=== PATIENT | female | born 1935 | race Caucasian/White ===

== ENCOUNTER 2017-07-14 17:56 | Emergency (ER) | payer MEDICARE ==
[2017-07-14 19:02] LABS: Hematocrit 35 % (35-47); Mean Corpuscular HGB Conc 35 g/dl (31-36); Mean Corpuscular Hemoglobin 32 pg (27-31); Mean Corpuscular Volume 93 fL (80-97); Mean Platelet Volume 9 um3 (7.4-10.4); Red Blood Count 3.71 10^6/ul (4.0-5.4); Red Cell Distribution Width 13 % (10.5-15); White Blood Count 4.3 10^3/ul (3.5-10.8)
--- NOTE | 2017-07-14 19:05 | RAD ---
INDICATION: Weakness COMPARISON: None TECHNIQUE: An AP portable view obtained at 1850 hours is submitted. FINDINGS: Bones/Soft Tissues: There are no acute bony findings. Cardiomediastinal: The cardiomediastinal silhouette is normal. Lungs: There are no infiltrates. Pleura: There are no pleural effusions. Other: None IMPRESSION: NO ACTIVE DISEASE.
[2017-07-14 19:20] LABS: Albumin 3.9 g/dL (3.2-5.2); Calcium 9.3 mg/dL (8.6-10.3); EGFR African American 49.8 (>60); EGFR Non-African American 38.7 (>60); Globulin 2.8 g/dL (2-4); Total Bilirubin 0.3 mg/dL (0.2-1.0); Total Protein 6.7 g/dL (6.4-8.9)
[2017-07-14 19:21] LABS: Troponin I 0.01 ng/mL (<0.04)
[2017-07-14] MEDS ORDERED: NS 0.9% 1000 ML* 1,000 ML IV ONE (19:33)
[2017-07-14 19:39] LABS: TSH (Thyroid Stimulating Horm) 4.94 mcIU/mL (0.34-5.60)
--- NOTE | 2017-07-14 19:40 | ED ---
Familia Craft Tecjoon, scribed for Petey Gresham MD on 07/14/17 at 1826 . Palpitations / Dysrhythmia - HPI Summary HPI Summary: This patient is a 81 year old female with a history of dementia brought in by ambulance to [facility] accompanied by nonfarm animal caretaker with concerns for bradycardia since today at approximately 1700. The patient has been staying in bed all day, which is atypical for her. When asked why she is staying in bed, the patient complains of chronic back pain. The patient's vital signs have been measured at the facility throughout the day and she has reportedly been in the 30's BPM. Patient denies dizziness or lightheadedness. - History of Current Complaint Chief Complaint: EDDysrhythmPalp Time Seen by Provider: 07/14/17 18:15 Hx Obtained From: Patient, Family/Rn Registry - Assisted Living Facility Onset/Duration: Lasting Hours - 1700 today Character: Slow Aggravating: Nothing Alleviating: Nothing Associated Signs & Symptoms: Negative - dizziness, lightheadedness - Allergy/Home Medications Allergies/Adverse Reactions: Allergies Allergy/AdvReac Type Severity Reaction Status Date / Time Cephalosporins Allergy Unknown Verified 07/14/17 18:27 Reaction Details Iodine Allergy Unknown Verified 07/14/17 18:27 Reaction Details Shellfish Allergy Allergy Unknown Verified 07/14/17 18:27 Reaction Details Home Medications: Home Medications Acebutolol CAP* [Sectral CAP*] 200 mg PO BID 07/14/17 [History Confirmed ] Acetaminophen TAB* [Tylenol TAB*] 650 mg PO Q4HR PRN MDD 8 tablets 07/14/17 [ History Confirmed 07/14/17] Atorvastatin* [Lipitor*] 40 mg PO QPM 07/14/17 [History Confirmed 07/14/17] Cholecalciferol TAB* [Vitamin D TAB*] 1,000 unit PO DAILY 07/14/17 [History Confirmed 07/14/17] Memantine HCl-Donepezil HCl [Namzaric 28-10 mg] 1 cap PO BEDTIME 07/14/17 [ History Confirmed 07/14/17] Sertraline* [Zoloft*] 25 mg PO BEDTIME 07/14/17 [History Confirmed 07/14/17] Valsartan TAB* [Diovan TAB*] 320 mg PO DAILY 07/14/17 [History Confirmed ] PMH/Surg Hx/FS Hx/Imm Hx Previously Healthy: No Endocrine/Hematology History: Reports: Hx Thyroid Disease - hypo Sensory History: Denies: Hx Deafness Opthamlomology History: Denies: Hx Legally Blind Neurological History: Reports: Hx Dementia Infectious Disease History: No Infectious Disease History: Denies: Traveled Outside the [place] in Last 30 Days - Family History Known Family History: Positive: Other - Per patient, the patient denies relevant FHx - Social History Occupation: Unemployed Lives: [facility] Alcohol Use: None Hx Substance Use: No Substance Use Type: Reports: None Review of Systems Negative: Fever Positive: Other - bradycardia Positive: Other - chronic back pain Neurological: Other - NEGATIVE: lightheadedness, dizziness Negative: Weakness All Other Systems Reviewed And Are Negative: Yes Physical Exam Triage Information Reviewed: Yes Vital Signs On Initial Exam: Initial Vitals Temp Pulse Resp BP Pulse Ox 98.9 F 52 16 140/59 97 07/14/17 18:12 07/14/17 18:12 07/14/17 18:12 07/14/17 18:12 07/14/17 18:12 Vital Signs Reviewed: Yes Appearance: Positive: Well-Appearing, No Pain Distress Skin: Positive: Warm, Skin Color Reflects Adequate Perfusion Head/Face: Positive: Normal Head/Face Inspection ENT: Positive: Pharynx normal Respiratory/Lung Sounds: Positive: Clear to Auscultation, Breath Sounds Present Cardiovascular: Positive: Bradycardia. Negative: Murmur Abdomen Description: Positive: Nontender Musculoskeletal: Positive: Strength/ROM Intact Neurological: Positive: Sensory/Motor Intact, CN Intact II-III Diagnostics - Vital Signs Vital Signs Temp Pulse Resp BP Pulse Ox 07/14/17 18:12 98.9 F 52 16 140/59 97 - Laboratory Result Diagrams: 07/14/17 18:45 07/14/17 18:45 Lab Statement: Any lab studies that have been ordered have been reviewed, and results considered in the medical decision making process. - Radiology CXR Xray Interpretation: No Acute Changes - IMPRESSION: NO ACTIVE DISEASE ED physician has reviewed this radiology report. Radiology Interpretation Completed By: Radiologist - EKG 1804 Cardiac Rate: Bradycardia EKG Rhythm: Sinus Bradycardia - 51 BPM EKG Interpretation: Sinus Bradycardia (51 BPM), with Sinus Pause EKG Comparison: No Significant Change Course/Dx - Course Course Of Treatment: 81 yr old weak, tired and not getting out of bed today. She has sinus jennifer with sinus pauses. She will be admitted by the hospitalists for OBV. - Diagnoses Provider Diagnoses: Bradycardia, Sinus pause, Hypertension - Critical Care Time Critical Care Time: 30-74 min Discharge - Discharge Plan Condition: Good Disposition: [facility] Referrals: Felipa Shankar MD [Primary Care Provider] - The documentation as recorded by the Familia stein Tecjoon accurately reflects the service I personally performed and the decisions made by , Petey Gresham MD.
[2017-07-14] MEDS ORDERED: Acetaminophen TAB* 325 MG PO PRN (19:59)
[2017-07-14] MEDS ORDERED: Ondansetron INJ* 2 MG/ML VIAL IV PRN (19:59)
[2017-07-14 20:58] VITALS: BP 179/86
[2017-07-14] MEDS ORDERED: ACEBUTOLOL 200 MG PO SCH (21:00)
[2017-07-14] MEDS ORDERED: MEMANTINE HCL DONEPEZIL HCL PO SCH (21:00)
[2017-07-14] MEDS ORDERED: Sertraline* 25 MG TAB PO SCH (21:00)
[2017-07-14] MEDS ORDERED: Heparin VIAL(*) 5000 UNITS/ML VIAL (FIVE THOUSAND) SUBCUT SCH (22:00)
--- NOTE | 2017-07-15 00:59 | CONS ---
CC: Dr. Maki CONSULTATION REPORT: DATE OF CONSULT: 07/14/17 PRIMARY CARE PROVIDER: Dr. Maki. ATTENDING PHYSICIAN WHILE IN THE HOSPITAL: Dr. Shah (report being dictated by Jesus Yuen NP) REQUESTING PHYSICIAN FOR CONSULT: Dr. Gresham. REASON FOR MEDICAL CONSULT: Evaluation for admission. HISTORY OF PRESENTING ILLNESS: Ms. Yu is an 81-year-old female patient. She has a history of moderate dementia, history of hyperlipidemia, hypertension , depression, and a known history of bradycardia. The patient came into the ED today because according to [place] notes, it was noted that there is concern about bradycardia and the patient had been lying in her bed, which was not her norm. There was concern that the bradycardia could be symptomatic; however, when discussing with the patient today, she does not really recall why she is here. She denies having any chest pain, shortness of breath, or any abdominal pain. She does admit to having some pain in her left hip. She says she did not pass out. There were no reports of her feeling dizzy and no reports of her feeling lightheaded or like she was going to pass out. When she came in, it was noted that she was profoundly bradycardic. She was bradycardic down into the 40s at times. Her heart rate was 51, which she did appear to have a sinus bradycardia with non-conducted P waves. Because of this, there was concern, and we were asked to initially evaluate for admission. PAST MEDICAL HISTORY: Significant for: 1. Hyperlipidemia. 2. Hypertension. 3. Dementia. 4. Depression. 5. History of bradycardia. PAST SURGICAL HISTORY: She has had a loop recorder placed in [place] in October of this year by Dr Fitzpatrick. MEDICATIONS: Home meds include: 1. Tylenol 650 mg every 4 hours as needed. 2. Acebutolol 200 mg p.o. b.i.d. 3. Zoloft 25 mg daily. 4. Vitamin 1000 units p.o. daily. 5. Namenda/Aricept 1 capsule p.o. daily. 6. Lipitor 40 mg daily. 7. Valsartan 320 mg p.o. daily. ALLERGIES TO MEDICATIONS: Include CEPHALOSPORINS, IODINE, and SHELLFISH. FAMILY HISTORY: Unknown. SOCIAL HISTORY: She is a former smoker. She lives at [place] [facility]. She does not drink alcohol. Surrogate decision maker is her son, Abdelrahman. REVIEW OF SYSTEMS: Question the reliability of this because of the underlying dementia, but the patient says she feels fine. There is no chest pain. No shortness of breath. No abdominal pain. She denied having any nausea or vomiting. No dysuria, no frequency. No seizures. She denies having loss of consciousness. No pruritus. She denies having any skin ulcerations. Review of 14 systems completed, all others negative. PHYSICAL EXAM: Vital Signs: Blood pressure 164/80 with a pulse now of 60, respirations 18, O2 sat 98%, temperature 98.9. General: At this time, Ms. Yu is an 81-year-old female patient, she is sitting in the ER stretcher. She does not appear to be in any acute distress. HEENT: Head is atraumatic, normocephalic. Eyes: EOMs intact. Sclerae anicteric and not pale. Neck: Supple. Throat: Oral mucosa appears to be moist. No oropharyngeal erythema. Heart: Sounds S1, S2. Regular rate and rhythm. She is right around 60 now. No murmurs, rubs, or gallops. Lungs: Clear to auscultation bilaterally. No wheezes, rales, or rhonchi. Abdomen: Soft, flat, nontender. Bowel sounds are present. Extremities: Pulses were 2+ throughout. She is moving all 4 extremities with 5/5 strength. Neurologically, the patient is awake, alert. She is alert to herself but she is confused to place and time. Tongue is midline. Stores Clerk were equal. No facial drooping. No gross focal deficits. Skin is intact. DIAGNOSTIC STUDIES/LAB DATA: WBC 4.3, RBC of 3.71, hemoglobin 10.0, hematocrit 35, platelet count of 189. The INR was 0.9. The sodium was 136, potassium was 5, chloride of 106, bicarb 28, BUN 29, creatinine 1.32, glucose 84, lactate 0.6 , calcium 9.3, total bili 0.3, mag 2.0, AST 15, ALT 12, alk phos 96. Troponin 0. BNP 147. Albumin of 3.9. TSH of 4.94. The patient did have a chest x-ray obtained today, which revealed no active disease. She did have an EKG. The initial EKG appears to be sinus bradycardia with pauses. There does appear to be a sinus dysfunction on this. I do not think that she is in a third-degree block at this point. There are no ST elevations or T-wave inversions. She had a heart rate of 51. The repeat EKG now just shows a sinus bradycardia, rate of 55. Chest x-ray showed again no active disease. Old medical records were reviewed. ASSESSMENT AND PLAN: Ms. Yu is an 81-year-old female patient that we were asked to evaluate for admission for bradycardia. On further evaluation, it was noted that she had a loop recorder. I touched base with her son, Abdelrahman, who informed me that in October of this year, she had a loop recorder placed and she was having episodes of syncope. The patient and family did not want a pacemaker and the family did not want a pacemaker placed because of her underlying dementia. In fact, the son says that the loop recorder they do not use it anymore, he has the downloading device at home with him and they have not been using it. She went to [place] this summer because she was having a difficult time taking care of herself because of her progressing dementia and I did touch base with our on-call application support lead at this point and discussed the case with him myself and we felt that she could be safely discharged back home because we are not going to provide any pacemaker as the son and family are clear that they do not want pacemaker. We also discussed the purpose of the beta kerry that she is on the Sectral, other name is acebutolol. It does have some intrinsic sympathomimetic activity and which may actually increase her resting heart rate, so at this point, I would leave that beta kerry in place as it may be increasing her intrinsic heart rate. She was asymptomatic with the bradycardia here in the ED. I did discuss with the son that without undergoing a pacemaker, certainly that could cause her to if she were to become bradycardic in the 20s or even in the teens or went into a higher third- degree heart block. He is awake of the risks and the son also does agree that underlying the patient's bradycardia that she has this progressive dementia and he would not want to prolong her suffering with this disease with the pacemaker and he also feels that if placing a pacemaker is a risky operation in someone of 81 years old and frankly I do agree with him on this point and I respect his wishes and honor them and I did explain to him that we could admit her overnight to observe her and see if there any changes or lowering of the heart rates, and at that point, I did also explain the risk of that would be changing her environment could cause delirium, we could expose her to many hospital- acquired pathogens and he did not want to take that risk and we both felt that it would be safer for her to be discharged home. I did discuss that if she were to be bradycardic and have a higher degree block that the way we would treat that emergently would be a possibly CPR or possibly atropine or epinephrine and possibly external pacing and he would not want that if she is a DNR. So, at this point, I discussed the case with my attending, Dr. Shah , who is in agreement that it would be better for the patient's overall wellbeing to be discharged home as she was asymptomatic with a bradycardia and the family does not want aggressive measures. I discussed this with Dr. Gresham and the patient will be discharged home. We will continue her medications, I would not make any changes. I would recommend getting the records from Dr. Fitzpatrick office to see exactly what further workup was done and at this point, if she does become symptomatic, would return to the hospital if she has any syncope, chest pain, shortness of breath, or any lightheadedness. TIME SPENT: On the consult was 60 minutes; greater than half the time was spent [id number] with the patient, obtaining history and physical, the other half time was spent going over the plan of care with the patient and implementing plan of care. I did discuss the plan of care with my attending, Dr. Shah; he is in agreement. JESUS YUEN, KRISTY [id number]/[facility] #: [id number] MERCED
[2017-07-15] MEDS ORDERED: Valsartan TAB* 160 MG PO SCH (09:00)
[2017-07-15] MEDS ORDERED: Atorvastatin* 40 MG TAB PO SCH (18:00)
== END 2017-07-14 20:51 | disposition home or self-care (01) ==
LOC: ED 17:56
DX: R00.1 Bradycardia, unspecified (principal); Z87.891 Personal history of nicotine dependence; E78.5 Hyperlipidemia, unspecified; I10 Essential (primary) hypertension; F03.90 Unspecified dementia, unspecified severity, without behavioral disturbance, psychotic disturbance, mood disturbance, and anxiety; F32.9 Major depressive disorder, single episode, unspecified
CPT/HCPCS: 36415; 71010; 80053; 83605; 83735; 83880; 84443; 84484; 85025; 85610; 93005; 96360; 99284

== ENCOUNTER → 2017-12-07 | Emergency (ER) | payer MEDICARE ==
[~2017-12-07] MED LIST: NS 0.9% 1000 ML* 1,000 ML IV ONE; PROCHLORPERAZINE INJ 5 MG/ML 2 ML VIAL IV PRN
--- NOTE | 2017-12-07 09:54 | RAD ---
HISTORY: Palpitation COMPARISONS: July 14, 2017 VIEWS: 1: frontal portable view of the chest at 9:35 AM FINDINGS: LINES AND TUBES: None. CARDIOMEDIASTINAL SILHOUETTE: The cardiomediastinal silhouette is normal for portable technique. PLEURA: The costophrenic angles are sharp. No pleural abnormalities are noted. LUNG PARENCHYMA: The lungs are clear. ABDOMEN: The upper abdomen is clear. There is no subphrenic gas. BONES AND SOFT TISSUES: No bone or soft tissue abnormalities are noted. IMPRESSION: NO ACTIVE CARDIOPULMONARY DISEASE.
[2017-12-07 11:01] LABS: ABS Basophils 0 10^3/ul (0-0.2); ABS Eosinophils 0.1 10^3/ul (0-0.6); ABS Lymphocytes 0.8 10^3/ul (1.0-4.8); ABS Monocytes 0.4 10^3/ul (0-0.8); ABS Neutrophils 2.1 10^3/ul (1.5-7.7); ABS Nucleated RBC 0 10^3/ul; Eosinophil % 1.8 % (0-6); Hematocrit 32 % (35-47); Lymphocyte % 24.7 % (25-47); Mean Corpuscular HGB Conc 35 g/dl (31-36); Mean Corpuscular Hemoglobin 33 pg (27-31); Mean Corpuscular Volume 96 fL (80-97); Mean Platelet Volume 8.8 um3 (7.4-10.4); Nucleated Red Blood Cells % 0.1; Platelet Count 177 10^3/ul (150-450); Red Blood Count 3.32 10^6/ul (4.0-5.4); Red Cell Distribution Width 13 % (10.5-15); White Blood Count 3.4 10^3/ul (3.5-10.8)
[2017-12-07 11:17] LABS: EGFR Non-African American 57.9 (>60)
[2017-12-07 11:34] VITALS: BP 157/74
--- NOTE | 2017-12-07 17:10 | ED ---
Usman Craft Tenzin, scribed for Bobby Farias MD on 12/07/17 at 0948 . Dizziness - HPI Summary HPI Summary: Pt is an 82 years old female brought in by ambulance with complaints of dizziness and a mild headache that started at 08:00 this morning. She reports that when she gets up, her dizziness worsens. The nursing staff at [place], where she lives, noted her to be bradycardic in the 30s, so she was brought in to the ED. She denies nausea. She saw a doctor yesterday for sore throat and a rash complain. - History Of Current Complaint Chief Complaint: EDDizziness Stated Complaint: HEADACHE, DIZZY Time Seen by Provider: 12/07/17 09:22 Hx Obtained From: Patient, Family/Shoe Repairman Onset/Duration: Still Present Timing: Constant Severity Initially: Mild Severity Currently: Mild Character: Dizzy Aggravating Factor(s): Position Change - when she gets up. Alleviating Factor(s): Nothing Associated Signs And Symptoms: Positive: Other: - Dizziness and mild headache.. Negative: Nausea - Allergies/Home Medications Allergies/Adverse Reactions: Allergies Allergy/AdvReac Type Severity Reaction Status Date / Time MS Cephalosporins Allergy Unknown Verified 07/14/17 18:27 [Cephalosporins] Reaction Details MS Iodine [Iodine] Allergy Unknown Verified 07/14/17 18:27 Reaction Details MS Shellfish Allergy Allergy Unknown Verified 07/14/17 18:27 [Shellfish Allergy] Reaction Details Home Medications: Home Medications Acetaminophen TAB* [Tylenol TAB*] 650 mg PO Q4H PRN MDD 8 tablets 12/07/17 [ History Confirmed 12/07/17] Docusate CAP* [Colace Cap*] 100 mg PO DAILY 12/07/17 [History Confirmed 12/07/17 ] Fluticasone NASAL SPRAY 50MCG* [Flonase NASAL SPRAY 50MCG*] 1 spray BOTH NARES DAILY 12/07/17 [History Confirmed 12/07/17] Memantine XR CAP* [Namenda XR CAP*] 28 mg PO BEDTIME 12/07/17 [History Confirmed 12/07/17] Triamcinolone 0.025% CM(NF) [Kenalog Cream 0.025%*] 1 applic TOPICAL BID [History Confirmed 05/16/18] PMH/Surg Hx/FS Hx/Imm Hx Endocrine/Hematology History: Reports: Hx Thyroid Disease - hypo Sensory History: Denies: Hx Legally Blind, Hx Deafness Opthamlomology History: Denies: Hx Legally Blind Neurological History: Reports: Hx Dementia Infectious Disease History: No Infectious Disease History: Denies: Traveled Outside the [place] in Last 30 Days - Family History Known Family History: Positive: Other - Per patient, the patient denies relevant FHx - Social History Alcohol Use: None Hx Substance Use: No Substance Use Type: Reports: None Smoking Status (MU): Never Smoked Tobacco Review of Systems Negative: Nausea Positive: Rash Neurological: Other - dizziness Positive: Headache All Other Systems Reviewed And Are Negative: Yes Physical Exam - Summary Physical Exam Summary: Appearance: The patient is well-nourished in no acute distress and in no acute pain. Skin: The skin is warm and dry and skin color reflects adequate perfusion. HEENT: The head is normocephalic and atraumatic. The pupils are 1-2mm. The conjunctivae are clear and without drainage. Nares are patent and without drainage. Mouth reveals moist mucous membranes and the throat is without erythema and exudate. The external ears are intact. The ear canals are patent and without drainage. The tympanic membranes are intact. Neck: the neck is supple with full range of motion and non-tender. There are no carotid bruits. There is no neck vein distension. Respiratory: Chest is non-tender. Lungs are clear to auscultation and breath sounds are symmetrical and equal. Cardiovascular: Heart is bradycardia and irregular rhythm. There is no murmur or rub auscultated. There is no peripheral edema and pulses are symmetrical and equal. Abdomen: The abdomen is soft and non-tender. There are normal bowel sounds heard in all four quadrants and there is no organomegaly palpated. Musculoskeletal: There is no back tenderness noted. Extremities are non-tender with full range of motion. There is good capillary refill. There is no peripheral edema or calf tenderness elicited. Neurological: Patient is alert and oriented to person, place and time. She seems confused but appropriately answers to Y/N questions. The patient has symmetrical motor strength in all four extremities. Cranial nerves are grossly intact. Deep tendon reflexes are symmetrical and equal in all four extremities. Psychiatric: The patient has an appropriate affect and does not exhibit any anxiety or depression. Triage Information Reviewed: Yes Vital Signs On Initial Exam: Initial Vitals Temp Pulse Resp BP Pulse Ox 98.5 F 60 20 154/80 98 12/07/17 09:17 12/07/17 09:17 12/07/17 09:17 12/07/17 09:17 12/07/17 09:17 Vital Signs Reviewed: Yes Diagnostics - Vital Signs Vital Signs Temp Pulse Resp BP Pulse Ox 12/07/17 09:17 98.5 F 60 20 154/80 98 - Laboratory Lab Results: Lab Results 12/07/17 12/07/17 12/07/17 Range/Units 10:47 10:47 10:47 WBC 3.4 L (3.5-10.8) 10^3/ul RBC 3.32 L (4.0-5.4) 10^6/ul Hgb 11.0 L (12.0-16.0) g/dl Hct 32 L (35-47) % MCV 96 (80-97) fL MCH 33 H (27-31) pg MCHC 35 (31-36) g/dl RDW 13 (10.5-15) % Plt Count 177 (150-450) 10^3/ul MPV 8.8 (7.4-10.4) um3 Neut % (Auto) 61.7 (38-83) % Lymph % (Auto) 24.7 L (25-47) % [place] % (Auto) 10.6 H (0-7) % Eos % (Auto) 1.8 (0-6) % Baso % (Auto) 1.2 (0-2) % Absolute Neuts (auto) 2.1 (1.5-7.7) 10^3/ul Absolute Lymphs (auto) 0.8 L (1.0-4.8) 10^3/ul Absolute Monos (auto) 0.4 (0-0.8) 10^3/ul Absolute Eos (auto) 0.1 (0-0.6) 10^3/ul Absolute Basos (auto) 0 (0-0.2) 10^3/ul Absolute Nucleated RBC 0 10^3/ul Nucleated RBC % 0.1 Sodium 139 (139-145) mmol/L Potassium 4.2 (3.5-5.0) mmol/L Chloride 110 (101-111) mmol/L Carbon Dioxide 25 (22-32) mmol/L Anion Gap 4 (2-11) mmol/L BUN 22 (6-24) mg/dL Creatinine 0.93 (0.51-0.95) mg/dL Est GFR ( Amer) 74.4 (>60) Est GFR (Non-Af Amer) 57.9 (>60) BUN/Creatinine Ratio 23.7 H (8-20) Glucose 92 (70-100) mg/dL Lactic Acid 0.8 (0.5-2.0) mmol/L Calcium 8.9 (8.6-10.3) mg/dL Magnesium 2.0 (1.9-2.7) mg/dL Total Bilirubin 0.40 (0.2-1.0) mg/dL AST 14 (13-39) U/L ALT 11 (7-52) U/L Alkaline Phosphatase 98 (34-104) U/L Troponin I 0.03 (<0.04) ng/mL Total Protein 6.4 (6.4-8.9) g/dL Albumin 3.8 (3.2-5.2) g/dL Globulin 2.6 (2-4) g/dL Albumin/Globulin Ratio 1.5 (1-3) TSH 2.41 (0.34-5.60) mcIU/mL Result Diagrams: 12/07/17 10:47 12/07/17 10:47 Lab Statement: Any lab studies that have been ordered have been reviewed, and results considered in the medical decision making process. - Radiology CXR Xray Interpretation: No Acute Changes - Impression: No active cardiopulmonary disease. Dr. Farias reviewed the report. Radiology Interpretation Completed By: Radiologist - EKG 0916 Cardiac Rate: Bradycardia - at 34 bpm EKG Rhythm: Sinus Bradycardia EKG Interpretation: LAD Dizzy Course/Dx - Course Course Of Treatment: Ms. Yu was C/O some dizziness at the [facility] and the found her to be bradycardic. She was in a sinus bradycardia on presentation here and C/O nausea. We gave her fluids and compazine and her bradycardia resolved. It seems likely that this was vagal, however I am not sure what has led to it. Labs were fine here. - Diagnoses Provider Diagnoses: Vagal reaction, Viral syndrome Discharge - Sign-Out/Discharge Documenting (check all that apply): Discharge/Admit/Transfer - Discharge Plan Condition: Stable Disposition: HOME Patient Education Materials: Viral Syndrome (ED) Referrals: Felipa Shankar MD [Primary Care Provider] - 3 Days Additional Instructions: Follow up with your primary care physician in three days. Return to the emergency department for any new or worsening symptoms. - Billing Disposition and Condition Condition: STABLE Disposition: HOME The documentation as recorded by the Usman stein Tenzin accurately reflects the service I personally performed and the decisions made by me, Bobby Farias MD.
== END | disposition home or self-care (01) ==
LOC: ED 09:11
DX: R55 Syncope and collapse (principal); B34.9 Viral infection, unspecified; Z88.3 Allergy status to other anti-infective agents; Z88.8 Allergy status to other drugs, medicaments and biological substances
CPT/HCPCS: 36415; 71045; 80053; 83605; 83735; 84443; 84484; 85025; 93005; 96360; 99283

== ENCOUNTER 2018-10-09 13:07 | Inpatient (IN) | payer MEDICARE ==
[2018-10-09 13:48] LABS: ABS Basophils 0.1 10^3/ul (0-0.2); ABS Eosinophils 0.1 10^3/ul (0-0.6); ABS Lymphocytes 0.5 10^3/ul (1.0-4.8); ABS Monocytes 0.5 10^3/ul (0-0.8); ABS Neutrophils 4.6 10^3/ul (1.5-7.7); ABS Nucleated RBC 0 10^3/ul; Eosinophil % 1.7 %; Hematocrit 36 % (33-41); Hemoglobin 12.2 g/dL (12.0-16.0); Lymphocyte % 8.9 %; Mean Corpuscular HGB Conc 34 g/dL (31-36); Mean Corpuscular Hemoglobin 32 pg (27-31); Mean Corpuscular Volume 94 fL (80-97); Mean Platelet Volume 9.1 fL (7.4-10.4); Nucleated Red Blood Cells % 0; Platelet Count 212 10^3/uL (150-450); Red Blood Count 3.79 10^6 /uL (3.70-4.87); Red Cell Distribution Width 13 % (10.5-15); White Blood Count 5.7 10^3/uL (3.5-10.8)
[2018-10-09 13:56] LABS: INR 0.93 (0.77-1.02)
[2018-10-09] MEDS ORDERED: Albuterol/Ipratropium NEB.SOL* Albuterol 2.5 MG/Ipratropium 0.5 MG 3 ML INH ONE (13:58)
[2018-10-09 14:06] LABS: Influenza A Molecular NEGATIVE (Negative); Influenza B Molecular NEGATIVE (Negative)
[2018-10-09 14:08] LABS: Albumin 4.5 g/dL (3.2-5.2); Albumin/Globulin Ratio 1.6 (1-3); BUN/Creatinine Ratio 19.8 (8-20); C Reactive Protein 10.57 mg/L (<8.01); Calcium 9.2 mg/dL (8.6-10.3); EGFR African American 67.3 (>60); EGFR Non-African American 55.6 (>60); Globulin 2.9 g/dL (2-4); Potassium 4.2 mmol/L (3.5-5.0); Total Bilirubin 0.6 mg/dL (0.2-1.0); Total Protein 7.4 g/dL (6.4-8.9)
[2018-10-09 14:11] LABS: Troponin I 0.04 ng/mL (<0.04)
[2018-10-09] MEDS ORDERED: Furosemide IV* 10 MG/ML 2 ML VIAL (20 MG) IV ONE (14:43)
--- NOTE | 2018-10-09 14:52 | ED ---
Respiratory - HPI Summary HPI Summary: patient is an 83-year-old female presents to the ED by EMS from the [facility]. Patient is DNR. Per EMS, patient has been having nausea, vomiting, diarrhea with a cough 24 hours. She is also noted to have stridor at rest. Staff at the [facility] state this is her baseline when she becomes anxious. She does have a history of severe dementia, hypertension and hypercholesterolemia. She has a history of COPD. No known history of CHF. Patient is a poor historian, however is able to state she has been having a cough 24 hours. She denies any sweats or chills. Unknown fevers. - History of Current Complaint Chief Complaint: EDShortnessOfBreath Stated Complaint: SOB, VOMITING PER CORRECTION Time Seen by Provider: 10/09/18 13:10 Hx Obtained From: Patient Onset/Duration: Sudden Onset Timing: Constant Initial Severity: Mild Current Severity: Mild Pain Intensity: 0 Character: Wheezing, Cough (Productive) Sputum Amount: Scant Sputum Color: White Aggravating Factor(s): Nothing Alleviating Factor(s): Nothing Associated Signs and Symptoms: Negative - Risk Factors Status Asthmaticus Risk Factors: Negative Pulmonary Embolism Risk Factors: Negative Cardiac Risk Factors: Negative Pseudomonas Risk Factors: Negative - Allergy/Home Medications Allergies/Adverse Reactions: Allergies Allergy/AdvReac Type Severity Reaction Status Date / Time Cephalosporins Allergy Unknown Verified 10/09/18 13:58 Reaction Details iodine Allergy Unknown Verified 10/09/18 13:58 Reaction Details shellfish derived Allergy Unknown Verified 10/09/18 13:58 Reaction Details Home Medications: Home Medications Guaifenesin/Dextromethorphan [Robitussin Cough-Chest Dm Liq] 10 ml PO Q6HR PRN 10/09/18 [History Confirmed 10/09/18] Methyl Salicylate/Menthol [Bengay Greaseless] 1 cre TOPICAL Q4HR PRN 10/09/18 [ History Confirmed 10/09/18] Petrolatum,White [Aquaphor Advanced Therapy] 1 oin TOPICAL BID PRN 10/09/18 [ History Confirmed 10/09/18] Ranitidine TAB (NF) [Zantac TAB (NF)] 150 mg PO BEDTIME 10/09/18 [History Confirmed 10/09/18] amLODIPine TAB* [Norvasc 5 mg TAB*] 5 mg PO DAILY 10/09/18 [History Confirmed ] PMH/Surg Hx/FS Hx/Imm Hx Previously Healthy: Yes - memory loss Endocrine/Hematology History: Reports: Hx Thyroid Disease - hypo Sensory History: Denies: Hx Legally Blind, Hx Deafness Opthamlomology History: Denies: Hx Legally Blind Neurological History: Reports: Hx Dementia Infectious Disease History: Unable to Obtain/Confirm Infectious Disease History: Denies: Traveled Outside the [place] in Last 30 Days - Family History Known Family History: Positive: Other - Per patient, the patient denies relevant FHx - Social History Alcohol Use: None Hx Substance Use: No Substance Use Type: Reports: None Hx Tobacco Use: No Smoking Status (MU): Never Smoked Tobacco Review of Systems Constitutional: Negative Negative: Fever, Chills, Fatigue, Skin Diaphoresis Negative: Epistaxis, Dental Pain Negative: Palpitations, Chest Pain Positive: Shortness Of Breath, Cough Positive: Vomiting, Diarrhea, Nausea. Negative: Abdominal Pain Genitourinary: Negative Positive: no symptoms reported, see HPI Musculoskeletal: Negative Neurological: Negative All Other Systems Reviewed And Are Negative: Yes Physical Exam Triage Information Reviewed: Yes Vital Signs On Initial Exam: Initial Vitals Temp Pulse Resp BP Pulse Ox 98.4 F 75 26 152/82 98 10/09/18 13:10 10/09/18 13:10 10/09/18 13:10 10/09/18 13:10 10/09/18 13:10 Vital Signs Reviewed: Yes Appearance: Positive: Well-Appearing, Well-Nourished Skin: Positive: Warm, Skin Color Reflects Adequate Perfusion Head/Face: Positive: Normal Head/Face Inspection Eyes: Positive: EOMI, AZEEM Neck: Positive: Supple, Nontender, No Lymphadenopathy Respiratory/Lung Sounds: Positive: Rales, Rhonchi, Wheezes Cardiovascular: Positive: Pulses are Symmetrical in both Upper and Lower Extremities, Leg Edema Left - +2, Leg Edema Right - +2 Diagnostics - Vital Signs Vital Signs Temp Pulse Resp BP Pulse Ox 10/09/18 14:26 77 17 98 10/09/18 13:10 98.4 F 75 26 152/82 98 - Laboratory Lab Results: Lab Results 10/09/18 10/09/18 10/09/18 Range/Units 13:34 13:34 13:34 WBC 5.7 (3.5-10.8) 10^3/uL RBC 3.79 (3.70-4.87) 10^6 /uL Hgb 12.2 (12.0-16.0) g/dL Hct 36 (33-41) % MCV 94 (80-97) fL MCH 32 H (27-31) pg MCHC 34 (31-36) g/dL RDW 13 (10.5-15) % Plt Count 212 (150-450) 10^3/uL MPV 9.1 (7.4-10.4) fL Neut % (Auto) 80.2 % Lymph % (Auto) 8.9 % Hickory % (Auto) 8.3 % Eos % (Auto) 1.7 % Baso % (Auto) 0.9 % Absolute Neuts (auto) 4.6 (1.5-7.7) 10^3/ul Absolute Lymphs (auto) 0.5 L (1.0-4.8) 10^3/ul Absolute Monos (auto) 0.5 (0-0.8) 10^3/ul Absolute Eos (auto) 0.1 (0-0.6) 10^3/ul Absolute Basos (auto) 0.1 (0-0.2) 10^3/ul Absolute Nucleated RBC 0 10^3/ul Nucleated RBC % 0 INR (Anticoag Therapy) 0.93 (0.77-1.02) Sodium 135 (135-145) mmol/L Potassium 4.2 (3.5-5.0) mmol/L Chloride 103 (101-111) mmol/L Carbon Dioxide 25 (22-32) mmol/L Anion Gap 7 (2-11) mmol/L BUN 19 (6-24) mg/dL Creatinine 0.96 H (0.51-0.95) mg/dL Est GFR ( Amer) 67.3 (>60) Est GFR (Non-Af Amer) 55.6 (>60) BUN/Creatinine Ratio 19.8 (8-20) Glucose 124 H (70-100) mg/dL Lactic Acid (0.5-2.0) mmol/L Calcium 9.2 (8.6-10.3) mg/dL Total Bilirubin 0.60 (0.2-1.0) mg/dL AST 18 (13-39) U/L ALT 12 (7-52) U/L Alkaline Phosphatase 123 H (34-104) U/L Troponin I 0.04 H* (<0.04) ng/mL C-Reactive Protein 10.57 H (<8.01) mg/L B-Natriuretic Peptide (<=100) pg/mL Total Protein 7.4 (6.4-8.9) g/dL Albumin 4.5 (3.2-5.2) g/dL Globulin 2.9 (2-4) g/dL Albumin/Globulin Ratio 1.6 (1-3) Influenza A (Rapid) (Negative) Influenza B (Rapid) (Negative) 10/09/18 10/09/18 10/09/18 Range/Units 13:34 13:34 13:54 WBC (3.5-10.8) 10^3/uL RBC (3.70-4.87) 10^6 /uL Hgb (12.0-16.0) g/dL Hct (33-41) % MCV (80-97) fL MCH (27-31) pg MCHC (31-36) g/dL RDW (10.5-15) % Plt Count (150-450) 10^3/uL MPV (7.4-10.4) fL Neut % (Auto) % Lymph % (Auto) % Hickory % (Auto) % Eos % (Auto) % Baso % (Auto) % Absolute Neuts (auto) (1.5-7.7) 10^3/ul Absolute Lymphs (auto) (1.0-4.8) 10^3/ul Absolute Monos (auto) (0-0.8) 10^3/ul Absolute Eos (auto) (0-0.6) 10^3/ul Absolute Basos (auto) (0-0.2) 10^3/ul Absolute Nucleated RBC 10^3/ul Nucleated RBC % INR (Anticoag Therapy) (0.77-1.02) Sodium (135-145) mmol/L Potassium (3.5-5.0) mmol/L Chloride (101-111) mmol/L Carbon Dioxide (22-32) mmol/L Anion Gap (2-11) mmol/L BUN (6-24) mg/dL Creatinine (0.51-0.95) mg/dL Est GFR ( Amer) (>60) Est GFR (Non-Af Amer) (>60) BUN/Creatinine Ratio (8-20) Glucose (70-100) mg/dL Lactic Acid 0.9 (0.5-2.0) mmol/L Calcium (8.6-10.3) mg/dL Total Bilirubin (0.2-1.0) mg/dL AST (13-39) U/L ALT (7-52) U/L Alkaline Phosphatase (34-104) U/L Troponin I (<0.04) ng/mL C-Reactive Protein (<8.01) mg/L B-Natriuretic Peptide 189 H (<=100) pg/mL Total Protein (6.4-8.9) g/dL Albumin (3.2-5.2) g/dL Globulin (2-4) g/dL Albumin/Globulin Ratio (1-3) Influenza A (Rapid) Negative (Negative) Influenza B (Rapid) Negative (Negative) Result Diagrams: 10/09/18 13:34 10/09/18 13:34 Lab Statement: Any lab studies that have been ordered have been reviewed, and results considered in the medical decision making process. Disposition - Course Course Of Treatment: During this patient's course of treatment, she is evaluated for nausea, vomiting, diarrhea and cough 24 hours. She had 2 episodes of emesis. On arrival into the ED she is noted to have stridor. EMS and staff at the [facility] state this is baseline for her when she becomes anxious. Lungs sound rhonchorous bilaterally with mild wheezing. Legs with pitting +2 edema bilaterally. Afebrile, VS stable. After arrival, no stridor is noted. Chest xray shows mild cardiomegaly and COPD. Duo-Neb breathing tx with little affect of rhonchorous sounds. She remains on 2L NC and sat is 96%. She is taken off O2 to ambulate as she does not have at home and immediately drops to 83%. She is placed back on O2 and is satting at 94%. She will be admitted to [facility] for hypoxia and O2 demand. Elevated dimer - will obtain CTA. Patient is admitted at 4:40p while awaiting CTA results. - Differential Dx - Cardiopulmonary Differential Diagnoses - Cardiopulmonary: Other - Nausea, vomiting, diarrhea, hypoxia, CHF - Diagnoses Provider Diagnoses: Hypoxia Discharge - Sign-Out/Discharge Documenting (check all that apply): Patient Departure Patient Received Moderate/Deep Sedation with Procedure: No - Discharge Plan Condition: Fair Disposition: ADMITTED TO [facility] Referrals: Felipa Shankar MD [Primary Care Provider] - - Billing Disposition and Condition Condition: FAIR Disposition: Admitted to [facility]
[2018-10-09 16:29] LABS: Urine Appearance Cloudy; Urine Bacteria 1+ (Absent); Urine Bilirubin Negative (Negative); Urine Blood Negative (Negative); Urine Glucose Negative (Negative); Urine Ketones Negative (Negative); Urine Nitrite Negative (Negative); Urine Protein Negative (Negative); Urine Red Blood Cell Trace(0-2/hpf) (Absent); Urine Specific Gravity 1.009 (1.010-1.030); Urine Squamous Epithelial Cell Present (Absent); Urine Urobilinogen Negative (Negative); Urine White Blood Cell 1+(6-10/hpf) (Absent)
[2018-10-09 16:33] LABS: Urine Color Colorless
[2018-10-09] MEDS ORDERED: Al Hydrox/Mg Hydrox/Simet LIQ* 30 ML UDC PO PRN (17:34)
[2018-10-09] MEDS ORDERED: Magnesium Hydroxide LIQ* 30 ML UDC PO PRN (17:34)
[2018-10-09] MEDS ORDERED: Acetaminophen TAB* 325 MG PO PRN (17:41)
[2018-10-09 18:48] LABS: Troponin I 0.04 ng/mL (<0.04)
[2018-10-09] MEDS ORDERED: Ondansetron INJ* 2 MG/ML VIAL IV PRN (18:49)
[2018-10-09] MEDS ORDERED: LORazepam TAB(*) 0.5 MG PO ONE (20:05)
--- NOTE | 2018-10-09 20:19 | HP ---
CC: Dr. Felipa Shankar * HISTORY AND PHYSICAL: DATE OF ADMISSION: 10/09/18 PRIMARY CARE PROVIDER: Dr. Felipa Shankar. ATTENDING PHYSICIAN: Dr. Carina Queen * (dictated by MODESTO Kwok). CHIEF COMPLAINT: Vomiting, diarrhea, difficulty breathing. HISTORY OF PRESENT ILLNESS: Joanna Yu is an 83-year-old female with past medical history significant for dementia, hypertension, hypercholesterolemia, COPD, bradycardia, who presents to the emergency room from [facility] with 24 hours of nausea, vomiting, diarrhea, and a cough. She has had multiple sick contacts at [facility]. Her son reports that there has been "a GI bug going around [facility]," which he was told by the nursing staff there. The patient began having vomiting and diarrhea yesterday, and today she was noticed to be breathing with stridor. [facility] staff notices that she does frequently have stridorous breathing when she is anxious. The patient is a poor historian, though she is able to describe a cough that she has had. She is without other complaints at the time of exam. The majority of her history is gathered from previous EMR and her son who is at bedside. At the time of visit, the patient denied abdominal pain and shortness of breath. ED COURSE: When she arrived to the emergency department, she had a temperature of 98.4, pulse rate of 75 beats per minute, respiration rate of 26, O2 saturation of 98% on 2 L by nasal cannula, and a blood pressure of 152/82. She was noted to be stridorous and was given DuoNeb with little improvement. The patient does not require oxygen at home. She was tested with ambulating O2 saturation and her O2 saturation went as low as 83% after ambulating approximately 10 feet per ED staff. In the emergency department, her D- dimer was found to be 392 and troponin of 0.04. Therefore, the hospitalists were asked to evaluate the patient for admission. PAST MEDICAL HISTORY: 1. Dementia. 2. Hypothyroidism. 3. Vitamin D deficiency. 4. Hypertension. 5. Hypercholesterolemia. 6. COPD. 7. Bradycardia. 8. Depression 9. GERD PAST SURGICAL HISTORY: The patient had a loop recorder placed in 2017. FAMILY HISTORY: The patient's mother in her 70s, she had dementia at time of . The patient's father in his 60s, medical history is unknown. Son does not believe that either of the patient's parents nor sister had history of CHF, hypertension, CAD, or CVA. SOCIAL HISTORY: The patient is and lives in [facility]. She does not have children of her own, though her stepson, Omari, is her power of state attorney and is involved in her care. His phone number is . The patient is a former smoker. She does not drink alcohol or use illicit drugs. MEDICATIONS: 1. Tylenol 650 mg every 4 hours as needed for back pain. 2. Acebutolol 200 mg p.o. b.i.d. 3. Zoloft 25 mg daily. 4. Vitamin D 1000 units p.o. daily. 5. Amlodipine 5 mg p.o. daily. 6. Ranitidine 150 mg p.o. at bedtime. 7. Namenda XR 28 mg p.o. q.h.s. 8. Lipitor 40 mg p.o. daily. 9. Valsartan 320 mg p.o. daily. ALLERGIES: The patient has allergies to SHELLFISH, IODINE, CEPHALOSPORINS. The reactions are unknown to her son and are not listed on her medical chart from [facility]. REVIEW OF SYSTEMS: An 11-point review of systems was completed and all pertinent positives and negatives are in the HPI. All other systems are negative. PHYSICAL EXAMINATION GENERAL: Elderly female is sitting upright in hospital stretcher, appearing in no acute distress, stepson at bedside. HEENT: Head: Atraumatic and normocephalic. Eyes: PERRL and sclerae anicteric. ENT: Mucous membranes are moist. NECK: Supple with normal range of motion. RESPIRATORY: End-expiratory wheezing throughout posteriorly and anteriorly. Respirations without stridor. CHEST: Regular rate and rhythm without murmurs, rubs, or gallops. ABDOMEN: Normoactive bowel sounds x4 quadrants; abdomen is soft, nontender, and nondistended. EXTREMITIES: No clubbing or cyanosis. There is pretibial edema in bilateral lower extremities. No calf tenderness bilaterally. NEURO: The patient is only oriented to self, though she is quite pleasant and cooperative. +5/5 strength in all extremities. No tremor. DIAGNOSTIC STUDIES/LAB DATA: Electrocardiogram on 10/09/18: Normal axis with sinus rhythm of 74 beats per minute, QTc 471. No ischemic changes. Chest x-ray on 10/09/18, impression: "Mild cardiomegaly. COPD." White blood cell count 5.7, hemoglobin 12.2, hematocrit 36, platelet count 212. INR 0.93, D-dimer 392. Sodium 135, potassium 4.2, chloride 103, carbon dioxide 25, BUN 19, creatinine 0.96, glucose 124, lactic acid 0.9. AST 18, ALT 12, alk phos 123. Troponin 0.04, BNP 189. Influenza A negative, influenza B negative. ASSESSMENT AND PLAN: The patient is an 83-year-old female with significant past medical history of chronic obstructive pulmonary disease, dementia, hypertension, hyperlipidemia, who presents to the emergency department from [facility] with stridor, nausea, vomiting, and diarrhea. The patient will be admitted to observation for: 1. Acute hypoxia. Included in the differential is acute exacerbation of congestive heart failure, chronic obstructive pulmonary disease exacerbation, pneumonia, and pulmonary embolism. The patient was found to be stridorous when she arrived to the emergency department and was given 2 L of oxygen via nasal cannula. The patient does not normally require oxygen at baseline. Her ambulating O2 sat dropped to 83% in the emergency department. DuoNeb in the ED did not provide much relief. At the time of exam by hospitalist medicine, the patient was no longer stridorous, but did have end-expiratory wheezing on auscultation. The patient has a D-dimer of 392, which is negative when age- adjusted. Therefore, CTA of the chest for further testing is not necessary at this time. The patient does not have a history of congestive heart failure. She has followed with a decker operator in the past for bradycardia and has never been diagnosed with congestive heart failure to the knowledge of the patient's POA. Today, she has bilateral peripheral edema in her lower extremities and troponin of 0.04. I suspect that this troponin is due to demand ischemia. Regardless troponins will still be trended to negative. Echocardiogram is ordered as well. Lasix 20 mg IV was given once in the emergency department. We will continue to monitor respiratory status. Her EKG was without signs of ischemic change. CXR demonstrated mild cardiomegaly and COPD. 2. Nausea/vomiting/diarrhea. The patient has had multiple sick contacts at her nursing facility at [facility]. It is likely that this is an infectious gastroenteritis. There is no concern for bowel obstruction at this time as the patient has benign abdominal exam. Despite multile episodes of vomiting and diarrhea, the patient has no signs of hypovolemia. She has moist mucous membranes and her [id number] ratio is within normal limits. We will continue to monitor these labs. PRN zofran ordered. 3. Hyperlipidemia. Continue the patient's home Lipitor. LDL ordered. 4. Hypertension. Continue home amlodipine and valsartan. Continue to monitor blood pressure. 5. Dementia. Continue home memantine. 6. Depression. Continue the home Zoloft. 7. Bradycardia. Continue home acebutolol. 8. Hypothyroidism. The patient does not take Synthroid at home. We will check TSH. 9. Chronic obstructive pulmonary disease. The patient does not take home medicine. We will continue to monitor. 10. Vitamin D deficiency. We will continue the patient's home cholecalciferol. 11. Gastroesophageal reflux disease. Continue the patient's home ranitidine. 12. Fluids, electrolytes, nutrition: Initiating GI easy diet as the patient presents with vomiting. The patient does not need IV fluids at this time as volume status appears within normal limits. 13. Code status: The patient is DNR/DNI. MOLST has been updated. 14. DVT prophylaxis: The patient has a high risk for deep venous thrombosis. The 5000 units of heparin subcu q.8 hours initiated. TIME SPENT: Approximately 50 minutes was spent on this admission, approximately half of this spent at bedside. This case was reviewed by my attending, Dr. Carina Queen, and she agrees with this assessment and plan. MODESTO KWOK [id number]/[facility] #: [id number]/CPS #: [id number] [facility]
--- NOTE | 2018-10-09 20:28 | HP ---
HISTORY AND PHYSICAL: ADDENDUM: PAST MEDICAL HISTORY: The patient has past medical history of depression, GERD. ASSESSMENT AND PLAN: The patient is an 83-year-old female with significant past medical history of chronic obstructive pulmonary disease, dementia, hypertension, hyperlipidemia, who presents to the emergency department from [email or web address] with stridor, nausea, vomiting, and diarrhea. The patient will be admitted to observation for: 1. Acute hypoxia including the differential is acute exacerbation of congestive heart failure, chronic obstructive pulmonary disease exacerbation, pneumonia, and pulmonary embolism. The patient was found to be stridorous when she arrived to the emergency department and was given 2 L of oxygen via nasal cannula. The patient does not normally require oxygen at baseline. Her ambulating O2 sat dropped to 83% in the emergency department. DuoNeb in the ED did not provide much relief. At the time of exam, the patient was no longer stridorous, but did have end-expiratory wheezing. The patient has a D-dimer of 392, so when age-adjusted, this is a negative D-dimer. Therefore, CTA of the chest for further testing is not necessary at this time. The patient does not have a history of congestive heart failure, though she has followed with a sueding and buffing machine operator in the past for bradycardia and has never been diagnosed with congestive heart failure to the knowledge of the patient's POA. Today, she has bilateral peripheral edema in her lower extremities and troponin of 0.04. I suspect that this troponin is due to demand ischemia, so they will still be trended to negative. Echocardiogram is ordered as well. Lasix 20 mg IV was given once in the emergency department. We will continue to monitor respiratory status. Her EKG was without signs of ischemic change. 2. Nausea/vomiting/diarrhea. The patient has had multiple sick contacts at her nursing facility at [place]. It is likely that this is an infectious gastroenteritis. Despite reports of vomiting and diarrhea, the patient has no signs of hypovolemia. She has moist mucous membranes and her [id number] ratio is within normal limits. We will continue to monitor these labs. There is no concern for bowel obstruction at this time as the patient has benign abdominal exam. 3. Hyperlipidemia. Continue the patient's home Lipitor. LDL ordered. 4. Hypertension. Continue home amlodipine and valsartan. Continue to monitor blood pressure. 5. Dementia. Continue home memantine. 6. Depression. Continue the patient's home Zoloft. 7. Bradycardia. Continue home acebutolol. 8. Hypothyroidism. The patient does not take Synthroid at home. We will check TSH. 9. Chronic obstructive pulmonary disease. The patient does not take home medicine. We will continue to monitor. 10. Vitamin D deficiency. We will continue the patient's home cholecalciferol. 11. Gastroesophageal reflux disease. Continue the patient's home ranitidine. 12. Fluids, electrolytes, nutrition: Initiating GI easy diet as the patient presents with vomiting. The patient does not need IV fluids at this time as volume status appears within normal limits. 13. Code status: The patient is DNR. MOLST has been updated. 14. DVT prophylaxis: The patient has a high risk for deep venous thrombosis. The 5000 units of heparin subcu q.8 hours initiated. TIME SPENT: Approximately 50 minutes was spent on this admission, approximately half of this spent at bedside. This case was reviewed by my attending, Dr. Carina Queen, and she agrees with this assessment and plan. MODESTO VALDEZ [id number]/[facility] #: [id number] [facility]
[2018-10-09 20:38] LABS: Troponin I 0.04 ng/mL (<0.04)
[2018-10-09] MEDS: Albuterol/Ipratropium NEB.SOL* Albuterol 2.5 MG/Ipratropium 0.5 MG 3 ML INH PRN (21:03)
[2018-10-09] MEDS: Sertraline* 25 MG TAB PO SCH (21:51)
[2018-10-09] MEDS: Famotidine TAB* 20 MG PO SCH (21:51)
[2018-10-09] MEDS: Memantine XR CAP* 28 MG CAP.XR PO SCH (21:51)
[2018-10-09] MEDS: ACEBUTOLOL 200 MG PO SCH (21:52)
[2018-10-09] MEDS: Heparin VIAL(*) 5000 UNITS/ML VIAL (FIVE THOUSAND) SUBCUT SCH (21:52)
[2018-10-09] MEDS: Atorvastatin* 40 MG TAB PO SCH (21:52)
[2018-10-10] MEDS: Heparin VIAL(*) 5000 UNITS/ML VIAL (FIVE THOUSAND) SUBCUT SCH (05:18)
[2018-10-10 07:40] LABS: ABS Basophils 0 10^3/ul (0-0.2); ABS Eosinophils 0.1 10^3/ul (0-0.6); ABS Lymphocytes 0.8 10^3/ul (1.0-4.8); ABS Monocytes 0.5 10^3/ul (0-0.8); ABS Neutrophils 3.4 10^3/ul (1.5-7.7); ABS Nucleated RBC 0 10^3/ul; Eosinophil % 1.5 %; Hematocrit 33 % (33-41); Hemoglobin 11.1 g/dL (12.0-16.0); Lymphocyte % 16.3 %; Mean Corpuscular HGB Conc 34 g/dL (31-36); Mean Corpuscular Hemoglobin 32 pg (27-31); Mean Corpuscular Volume 94 fL (80-97); Mean Platelet Volume 9.3 fL (7.4-10.4); Nucleated Red Blood Cells % 0.1; Platelet Count 185 10^3/uL (150-450); Red Blood Count 3.51 10^6 /uL (3.70-4.87); Red Cell Distribution Width 13 % (10.5-15); White Blood Count 4.8 10^3/uL (3.5-10.8)
[2018-10-10 08:07] LABS: Albumin 4.1 g/dL (3.2-5.2); Albumin/Globulin Ratio 1.6 (1-3); BUN/Creatinine Ratio 20.4 (8-20); Calcium 8.8 mg/dL (8.6-10.3); EGFR African American 69.8 (>60); EGFR Non-African American 57.7 (>60); Globulin 2.6 g/dL (2-4); HDL Cholesterol 29.2 mg/dL; Potassium 3.9 mmol/L (3.5-5.0); Total Bilirubin 0.5 mg/dL (0.2-1.0); Total Protein 6.7 g/dL (6.4-8.9)
[2018-10-10] MEDS: Nystatin OINT* 15 GM TOPICAL SCH ×2 (08:59→20:50)
[2018-10-10] MEDS: amLODIPine TAB* 5 MG PO SCH (08:59)
[2018-10-10] MEDS: Cholecalciferol TAB* 1000 UNITS PO SCH (08:59)
[2018-10-10] MEDS: Valsartan TAB* 160 MG PO SCH (08:59)
[2018-10-10] MEDS: Fluticasone NASAL SPRAY 50MCG* 16 gm SPRAY BTL BOTH NARES SCH (08:59)
[2018-10-10] MEDS: ACEBUTOLOL 200 MG PO SCH ×2 (08:59→20:48)
[2018-10-10] MEDS: Albuterol/Ipratropium NEB.SOL* Albuterol 2.5 MG/Ipratropium 0.5 MG 3 ML INH PRN (09:23)
[2018-10-10] MEDS ORDERED: Furosemide IV* 10 MG/ML 2 ML VIAL (20 MG) IV ONE (10:18)
[2018-10-10] MEDS: predniSONE TAB* 20 MG PO SCH (10:50)
--- NOTE | 2018-10-10 12:41 | PN ---
Subjective Interval History: Admitted last night. Given pt's significant smoking history, wheezing on exam, and hyperinflation on CXR, I suspect this is a COPD exacerbation (first time - not previously diagnosed). I started steroids today. Also dosing furosemide IV x 1 given significant LE swelling. CXR was not concerning for edema, so unlikely that HF is cause of current symptoms. TTE still pending. Objective Active Medications: Acebutolol HCl (Sectral Cap*) 200 mg PO BID [facility] Last Admin: 10/10/18 08:59 Dose: 200 mg Acetaminophen (Tylenol Tab*) 650 mg PO Q4H PRN PRN Reason: PAIN Al Hydrox/Mg Hydrox/Simethicone (Maalox Plus*) 30 ml PO Q6H PRN PRN Reason: INDIGESTION Albuterol/Ipratropium (Duoneb (Albuterol 2.5 Mg/Ipratropium 0.5 Mg)) 1 neb INH Q4H PRN PRN Reason: SOB/WHEEZING Last Admin: 10/10/18 09:23 Dose: 1 neb Amlodipine Besylate (Norvasc Tab*) 5 mg PO DAILY [facility] Last Admin: 10/10/18 08:59 Dose: 5 mg Atorvastatin Calcium (Lipitor*) 40 mg PO BEDTIME [facility]OC[facility] Last Admin: 10/09/18 21:52 Dose: 40 mg Cholecalciferol (Vitamin D Tab*) 1,000 units PO DAILY [facility] Last Admin: 10/10/18 08:59 Dose: 1,000 units Enoxaparin Sodium (Lovenox(*)) 40 mg SUBCUT Q24H [facility]OCEL[facility] Famotidine (Pepcid Tab*) 20 mg PO BEDTIME JOCELIN Last Admin: 10/09/18 21:51 Dose: 20 mg Fluticasone Propionate (Flonase Nasal Centenary 50mcg*) 1 spray BOTH NARES DAILY [facility] Last Admin: 10/10/18 08:59 Dose: 1 spray Magnesium Hydroxide (Milk Of Magnesia Liq*) 30 ml PO Q4H PRN PRN Reason: CONSTIPATION Memantine (Namenda Xr Cap*) 28 mg PO BEDTIME JOCELIN Last Admin: 10/09/18 21:51 Dose: 28 mg Nystatin (Nystatin Oint*) 1 applic TOPICAL BID [facility] Last Admin: 10/10/18 08:59 Dose: 1 applic Ondansetron HCl (Zofran Inj*) 4 mg IV Q4H PRN PRN Reason: NAUSEA/VOMITING Last Admin: 10/09/18 20:04 Dose: 4 mg Prednisone (Deltasone Tab*) 40 mg PO DAILY [facility] Last Admin: 10/10/18 10:50 Dose: 40 mg Sertraline HCl (Zoloft*) 25 mg PO BEDTIME [facility] Last Admin: 10/09/18 21:51 Dose: 25 mg Valsartan (Diovan Tab*) 320 mg PO DAILY [facility] Last Admin: 10/10/18 08:59 Dose: 320 mg Vital Signs - 8 hr 10/10/18 10/10/18 07:16 11:30 Temperature 98.0 F 97.8 F Pulse Rate 75 72 Respiratory 20 16 Rate Blood Pressure 149/57 144/66 (mmHg) O2 Sat by Pulse 93 97 Oximetry Oxygen Devices in Use Now: Nasal Cannula Appearance: well appearing, reclined at 45 degrees, chatting in full sentences with stepson Respiratory: - - diffuse expiratory wheeze Cardiovascular: NL Sounds; No Murmurs; No JVD, RRR Abdominal: NL Sounds; No Tenderness; No Distention Extremities: - - 2+ edema to mid-shins Neurological: - - oriented to [facility]; at times has inappropriate response to questions or references things that don't exist Result Diagrams: 10/10/18 06:58 10/10/18 06:58 Additional Lab and Data: Lab Results 10/09/18 10/09/18 10/09/18 Range/Units 13:34 13:34 13:34 WBC 5.7 (3.5-10.8) 10^3/uL RBC 3.79 (3.70-4.87) 10^6 /uL Hgb 12.2 (12.0-16.0) g/dL Hct 36 (33-41) % MCV 94 (80-97) fL MCH 32 H (27-31) pg MCHC 34 (31-36) g/dL RDW 13 (10.5-15) % Plt Count 212 (150-450) 10^3/uL MPV 9.1 (7.4-10.4) fL Neut % (Auto) 80.2 % Lymph % (Auto) 8.9 % [place] % (Auto) 8.3 % Eos % (Auto) 1.7 % Baso % (Auto) 0.9 % Absolute Neuts (auto) 4.6 (1.5-7.7) 10^3/ul Absolute Lymphs (auto) 0.5 L (1.0-4.8) 10^3/ul Absolute Monos (auto) 0.5 (0-0.8) 10^3/ul Absolute Eos (auto) 0.1 (0-0.6) 10^3/ul Absolute Basos (auto) 0.1 (0-0.2) 10^3/ul Absolute Nucleated RBC 0 10^3/ul Nucleated RBC % 0 INR (Anticoag Therapy) 0.93 (0.77-1.02) Sodium 135 (135-145) mmol/L Potassium 4.2 (3.5-5.0) mmol/L Chloride 103 (101-111) mmol/L Carbon Dioxide 25 (22-32) mmol/L Anion Gap 7 (2-11) mmol/L BUN 19 (6-24) mg/dL Creatinine 0.96 H (0.51-0.95) mg/dL Est GFR ( Amer) 67.3 (>60) Est GFR (Non-Af Amer) 55.6 (>60) BUN/Creatinine Ratio 19.8 (8-20) Glucose 124 H (70-100) mg/dL Lactic Acid (0.5-2.0) mmol/L Calcium 9.2 (8.6-10.3) mg/dL Total Bilirubin 0.60 (0.2-1.0) mg/dL AST 18 (13-39) U/L ALT 12 (7-52) U/L Alkaline Phosphatase 123 H (34-104) U/L Troponin I 0.04 H* (<0.04) ng/mL C-Reactive Protein 10.57 H (<8.01) mg/L B-Natriuretic Peptide (<=100) pg/mL Total Protein 7.4 (6.4-8.9) g/dL Albumin 4.5 (3.2-5.2) g/dL Globulin 2.9 (2-4) g/dL Albumin/Globulin Ratio 1.6 (1-3) Influenza A (Rapid) (Negative) Influenza B (Rapid) (Negative) 03/18/19 03/18/19 03/18/19 Range/Units 13:34 13:34 13:54 WBC (3.5-10.8) 10^3/uL RBC (3.70-4.87) 10^6 /uL Hgb (12.0-16.0) g/dL Hct (33-41) % MCV (80-97) fL MCH (27-31) pg MCHC (31-36) g/dL RDW (10.5-15) % Plt Count (150-450) 10^3/uL MPV (7.4-10.4) fL Neut % (Auto) % Lymph % (Auto) % [place] % (Auto) % Eos % (Auto) % Baso % (Auto) % Absolute Neuts (auto) (1.5-7.7) 10^3/ul Absolute Lymphs (auto) (1.0-4.8) 10^3/ul Absolute Monos (auto) (0-0.8) 10^3/ul Absolute Eos (auto) (0-0.6) 10^3/ul Absolute Basos (auto) (0-0.2) 10^3/ul Absolute Nucleated RBC 10^3/ul Nucleated RBC % INR (Anticoag Therapy) (0.77-1.02) Sodium (135-145) mmol/L Potassium (3.5-5.0) mmol/L Chloride (101-111) mmol/L Carbon Dioxide (22-32) mmol/L Anion Gap (2-11) mmol/L BUN (6-24) mg/dL Creatinine (0.51-0.95) mg/dL Est GFR ( Amer) (>60) Est GFR (Non-Af Amer) (>60) BUN/Creatinine Ratio (8-20) Glucose (70-100) mg/dL Lactic Acid 0.9 (0.5-2.0) mmol/L Calcium (8.6-10.3) mg/dL Total Bilirubin (0.2-1.0) mg/dL AST (13-39) U/L ALT (7-52) U/L Alkaline Phosphatase (34-104) U/L Troponin I (<0.04) ng/mL C-Reactive Protein (<8.01) mg/L B-Natriuretic Peptide 189 H (<=100) pg/mL Total Protein (6.4-8.9) g/dL Albumin (3.2-5.2) g/dL Globulin (2-4) g/dL Albumin/Globulin Ratio (1-3) Influenza A (Rapid) Negative (Negative) Influenza B (Rapid) Negative (Negative) Microbiology and Other Data: Microbiology 10/09/18 16:15 Urine Culture - Preliminary Urine Escherichia Coli 10/09/18 15:43 Nasal Screen MRSA (PCR) - Final Nasal Mrsa Not Detected 10/09/18 13:12 Influenza Types A,B Antigen - Final Nasal Specimen received for Influenza A/B Molecular testing Assess/Plan/Problems-Billing 83W with dementia, HTN, depression, significant smoking history, presents with subacute SOB accompanied by cough and vomiting. Pt found without evidence concerning for infection but with moderate volume overload on exam and hyperinflated lungs on CXR. - Patient Problems (1) COPD (chronic obstructive pulmonary disease) Comment: Most likely diagnosis. Pt has not had testing for this in the past, however she has significant smoking history, with wheeze on exam, and hyperinflated CXR. - start on prednisone burst (10/10 - ) - cont nebs prn - wean O2, SaO2 goal 88-92% - will need albuterol prn and PFTs as outpatient, may need tiotropium inh (2) Edema extremities Comment: long standing HTN - could be HFpEF - s/p furosemide 20mg IV x 2 - f/u TTE (3) Hypertension Comment: - cont home amlodipine and valsartan (4) Depression Comment: - cont home sertraline (5) Dementia Comment: - cont home memantine, may have little benefit at this point - defer to PCP for management (6) Functional dyspepsia Comment: Emesis prior to admission likely post-tussive. Improved as cough improved. - cont famotidine (7) DVT (deep venous thrombosis) Comment: switch to lovenox q24h ppx (8) DNR (do not resuscitate) Status and Disposition: Inpatient until weaned off O2. Back to [facility] on DC.
--- NOTE | 2018-10-10 14:38 | ECHO ---
Patient: Reyes JORGE [facility] Rec#: [id number] : 1935 Date: 10/10/2018 Age: 83y Height: 162.6 cm / 64.0 in Weight: 102 kg / 224.8 lbs Sex: F BSA: 2.06 Room#: 401 Admit Date#: 10/09/2018 Type: Inpatient Referring: Lien Glasgow Reading: Jayro Vazquez MD Econometrician: Eva AlcantarMATT CC: Felipa Shankar MD Transthoracic Echocardiogram Indication: Edema BP: 152/83 HR: 75 Rhythm: NSR with PACs Findings History: Dementia, HTN, HLD, COPD, bradycardia, hypothyroidism, former smoker. Technical Comments: The study quality is fair. The study is technically limited due to poor parasternal windows. Left Ventricle: The left ventricular chamber size is normal. There is no left ventricular hypertrophy. There is normal left ventricular systolic function. The estimated ejection fraction is 55-60%. There is septal flattening of the interventricular septum consistent with right ventricular volume or pressure overload. Abnormal left ventricular diastolic function is observed. Abnormal left ventricular diastolic filling is observed, consistent with impaired relaxation. Left Atrium: The left atrium is mildly dilated. Right Ventricle: Moderator Band present. The right ventricle is mildly dilated. The right ventricle wall thickness is mildly increased. The right ventricular global systolic function is normal. Right Atrium: The right atrium is mildly dilated. Aortic Valve: The aortic valve is trileaflet. The aortic valve leaflets are mildly thickened. There is evidence of aortic sclerosis without stenosis. There is a trace of aortic regurgitation. There is no evidence of aortic stenosis. Mitral Valve: There is mitral annular calcification. The mitral valve leaflets are mildly thickened. There is trace to mild mitral regurgitation. There is no evidence of mitral stenosis. Tricuspid Valve: The tricuspid valve leaflets are normal. There is mild tricuspid regurgitation. The right ventricular systolic pressure is estimated at 34 mmHg. There is no tricuspid stenosis. Pulmonic Valve: The pulmonic valve structure is not well visualized. The pulmonic valve appears normal. There is no pulmonic stenosis. Pericardium: There is no significant pericardial effusion. A pericardial fat pad is visualized. Aorta: There is mild dilatation of the ascending aorta. The aortic arch is not well visualized. The aortic root is normal in size. Pulmonary Artery: The main pulmonary artery is not well visualized. Venous: The inferior vena cava appears normal in size. There is a greater than 50% respiratory change in the inferior vena cava dimension. Summary: There was not any prior study for comparison. Conclusions There is normal left ventricular systolic function. The estimated ejection fraction is 55-60%. Abnormal left ventricular diastolic function is observed. The right ventricle wall thickness is mildly increased. The right ventricular global systolic function is normal. There is evidence of aortic sclerosis without stenosis. There is a trace of aortic regurgitation. There is trace to mild mitral regurgitation. There is mild tricuspid regurgitation. The right ventricular systolic pressure is estimated at 34 mmHg. There is no significant pericardial effusion. There is mild dilatation of the ascending aorta. Measurements Name Value Normal Range RVIDd (AP) 2D 3.1 cm (0.9 - 2.6) RVDdMajor (2D) 4.5 cm (2.2 - 4.4) RVAW (2D) 0.8 cm (0.2 - 0.5) RAd ISD 4CH 5.1 cm (3.4 - 4.9) RA (A4C)W 4.5 cm (2.9 - 4.6) IVSd (2D) 0.9 cm (0.6 - 1) LVPWd (2D) 1 cm (0.6 - 1) LVIDd (2D) 4.8 cm (3.6 - 5.4) LVIDs (2D) 3.6 cm - LV FS (2D) 26 % (25 - 45) Aortic Annulus 2.1 cm (1.4 - 2.6) Ao root diameter (2D) 3.1 cm (2.1 - 3.5) Ascending Ao 3.6 cm (2.1 - 3.4) LA dimension (AP) 2D 4.5 cm (2.3 - 3.8) LAd ISD 4CH 5.9 cm (2.9 - 5.3) LA ISD 4CH W 4.6 cm (2.5 - 4.5) Name Value Normal Range LA ESV BP (A/L) index 32 ml/m2 - Name Value Normal Range MV E-wave Vmax 0.65 m/sec - MV deceleration time 239 msec - MV A-wave Vmax 0.74 m/sec - MV E:A ratio 0.9 ratio - LV septal e' Vmax 0.05 m/sec - LV lateral e' Vmax 0.1 m/sec - LV E:e' septal ratio 13 ratio - LV E:e' lateral ratio 6.5 ratio - Name Value Normal Range AV Vmax 1.7 m/sec - AV VTI 39 cm - AV peak gradient 12 mmHg - AV mean gradient 6 mmHg - LVOT Vmax 1 m/sec - LVOT VTI 24 cm - LVOT peak gradient 4 mmHg - LVOT mean gradient 2 mmHg - JAYME Vmax 0.7 m/sec - Name Value Normal Range TR Vmax 2.8 m/sec - TR peak gradient 31 mmHg - RAP 3 mmHg - RVSP 34 mmHg - IVC diameter 1.5 cm - Name Value Normal Range PV Vmax 1.3 m/sec - PV peak gradient 6 mmHg -
[2018-10-10 14:58] LABS: BUN/Creatinine Ratio 22.3 (8-20); Calcium 9.1 mg/dL (8.6-10.3); EGFR African American 62.1 (>60); EGFR Non-African American 51.3 (>60); Magnesium 1.9 mg/dL (1.9-2.7); Potassium 4.2 mmol/L (3.5-5.0)
[2018-10-10] MEDS: Memantine XR CAP* 28 MG CAP.XR PO SCH (20:47)
[2018-10-10] MEDS: Atorvastatin* 40 MG TAB PO SCH (20:47)
[2018-10-10] MEDS: Famotidine TAB* 20 MG PO SCH (20:47)
[2018-10-10] MEDS: Sertraline* 25 MG TAB PO SCH (20:48)
[2018-10-10] MEDS ORDERED: Enoxaparin(*) 40 MG/0.4 ML SYR SUBCUT SCH (21:00)
[2018-10-11 07:21] LABS: BUN/Creatinine Ratio 24.7 (8-20); EGFR African American 73.5 (>60); EGFR Non-African American 60.7 (>60); Potassium 3.8 mmol/L (3.5-5.0)
[2018-10-11 07:42] LABS: TSH (Thyroid Stimulating Horm) 1.66 mcIU/mL (0.34-5.60)
[2018-10-11] MEDS: amLODIPine TAB* 5 MG PO SCH (08:02)
[2018-10-11] MEDS: ACEBUTOLOL 200 MG PO SCH (08:02)
[2018-10-11] MEDS: Cholecalciferol TAB* 1000 UNITS PO SCH (08:02)
[2018-10-11] MEDS: predniSONE TAB* 20 MG PO SCH (08:02)
[2018-10-11] MEDS: Valsartan TAB* 160 MG PO SCH (08:02)
[2018-10-11] MEDS: Nystatin OINT* 15 GM TOPICAL SCH (08:06)
[2018-10-11] MEDS: Fluticasone NASAL SPRAY 50MCG* 16 gm SPRAY BTL BOTH NARES SCH (08:06)
[2018-10-11 09:53] VITALS: BP 144/60
--- NOTE | 2018-10-11 12:31 | DS ---
CC: Felipa Shankar MD DISCHARGE SUMMARY: DATE OF ADMISSION: 10/09/18 DATE OF DISCHARGE: 10/11/18 PRIMARY CARE PHYSICIAN: Felipa Shankar MD. DISPOSITION: To [facility]. CONDITION: Good. PRIMARY DIAGNOSIS: Chronic obstructive pulmonary disease exacerbation. SECONDARY DIAGNOSIS: Diastolic heart failure. PERTINENT STUDIES: Chest x-ray showed mild cardiomegaly and hyperinflation of lungs with flattening of the diaphragm and expansion of AP diameter of the chest consistent with COPD. Transthoracic echocardiogram performed on 10/10/18: Normal left ventricular systolic function with EF 55% to 60%, abnormal LV diastolic function, RV wall thickness mildly increased, RV global systolic function is normal. Trace aortic regurg, [id number] mitral regurgitation, mild tricuspid regurgitation. The right ventricular systolic pressure is estimated to be 34 mmHg, mild dilatation of the ascending aorta. HISTORY OF PRESENT ILLNESS: An 83-year-old woman with past medical history of dementia, hypertension, bradycardia, who presented to the emergency room with subacute cough, shortness of breath, nausea and vomiting. She reports multiple sick contacts at her care facility including a GI bug that had been going around. The patient was also thought to be having stridor on breathing, so she was transferred to [facility] for further evaluation. HOSPITAL COURSE: In the ER, her vital signs were stable, although it was noted that she had a new oxygen requirement of 2 L to maintain oxygen saturation in the upper 90s. On ambulation, her oxygen saturation dropped to the low 80s after 10 feet of walking. Her D-dimer was within normal limits and her troponin was normal, so she was admitted for workup of hypoxia. Her chest x-ray was noted to be concerning for COPD and she was also found to have lower extremity swelling on exam, although no pulmonary congestion on chest x-ray. Given concern for undiagnosed COPD with new exacerbation, the patient was started on nebulizer treatment and oral prednisone with rapid improvement of her symptoms and was able to come off of supplemental oxygen. She was given a dose of IV furosemide in the ER given lower extremity swelling and shortness of breath and her echo is concerning for diastolic heart failure but it was thought not to be contributing to her presenting illness given clear lungs on chest x-ray and no crackles on exam. On the day of discharge, the patient states that she feels well but is unable to give further symptoms given cognitive impairment. Her son notes that she looks great and seems back to her baseline. PHYSICAL EXAMINATION: She has remained afebrile. Heart rate in the 60s, SaO2 98% on room air with blood pressure 144/60. General: Well-appearing woman, sitting on the side of her bed, chatting with her son and occasionally nonsensical (baseline). Lungs: Clear to auscultation bilaterally. Heart: Regular rate and rhythm. No murmurs, gallops, or rubs. Abdomen: Soft, nontender, nondistended. Lower extremities without pitting edema, but noted to have wrinkles from recent diuresis. DISCHARGE PLAN: The patient is to follow up within 1 to 2 weeks with her primary care physician for management of her chronic illnesses but also for further workup likely new COPD diagnosis. She would require pulmonary function tests to make this diagnosis. Until then, she can remain on a Spiriva inhaler daily with albuterol as needed and she will finish a 4-day prednisone burst. She was not discharged on diuretics as she did not have them before admission, but if the fluid in her lower extremities reaccumulates, she can also be started on daily furosemide by her primary care physician. DISCHARGE MEDICATIONS: 1. Prednisone 40 mg daily for 2 more days. 2. Spiriva 1 inhalation daily. 3. Albuterol 2 puffs q.6 hours as needed for shortness of breath or wheeze. 4. Acebutolol 200 mg twice a day. 5. Sertraline 25 mg nightly. 6. Ranitidine 150 mg nightly. 7. Memantine 28 mg nightly. 8. Atorvastatin 40 mg nightly. 9. Vitamin D 1000 units daily. 10. Amlodipine 5 mg daily. 11. Valsartan 320 mg nightly. 12. Fluticasone nasal spray, 1 spray daily. TIME SPENT: Approximately 60 minutes spent on discharge of this patient, more than half of which was spent with care coordination at bedside for interview and exam. [id number]/[facility] #: [id number] MERCED
== END 2018-10-11 12:15 | disposition home or self-care (01) | DRG 190 ==
LOC: ED 13:07 → MED 17:31 → OBSVTOIN 10-10 10:29
PROVIDERS: ADMIT Internal Medicine; ATTEND Internal Medicine
DX: J44.1 Chronic obstructive pulmonary disease with (acute) exacerbation (principal); I50.33 Acute on chronic diastolic (congestive) heart failure; Z95.811 Presence of heart assist device; I11.0 Hypertensive heart disease with heart failure; F03.90 Unspecified dementia, unspecified severity, without behavioral disturbance, psychotic disturbance, mood disturbance, and anxiety; E78.00 Pure hypercholesterolemia, unspecified; E78.5 Hyperlipidemia, unspecified; E03.9 Hypothyroidism, unspecified; F32.9 Major depressive disorder, single episode, unspecified; K21.9 Gastro-esophageal reflux disease without esophagitis; R00.1 Bradycardia, unspecified; E55.9 Vitamin D deficiency, unspecified; Z66 Do not resuscitate; R09.02 Hypoxemia; K30 Functional dyspepsia; I08.3 Combined rheumatic disorders of mitral, aortic and tricuspid valves; I77.819 Aortic ectasia, unspecified site; Z82.0 Family history of epilepsy and other diseases of the nervous system; Z88.1 Allergy status to other antibiotic agents; Z91.041 Radiographic dye allergy status; Z91.013 Allergy to seafood; Z87.891 Personal history of nicotine dependence
CPT/HCPCS: 36415; 71046; 80048; 80053; 80061; 81003; 81015; 83605; 83735; 83880; 84443; 84484; 85025; 85379; 85610; 85730; 86140; 87040; 87077; 87086; 87186; 87641; 93005; 93306; 94640; 99285; A9270-GY; G0378; J1644; J1650; J1940; J2405; J7512

== ENCOUNTER 2019-06-19 08:58 | Observation (INO) | payer MEDICARE ==
--- NOTE | 2019-06-19 09:13 | ED ---
Shortness of Breath - HPI Summary HPI Summary: The patient is an 83 y/o F arriving by ambulance to [facility] from [place] with a chief complaint of shortness of breath this morning. Per EMS, the patient has been experiencing cold symptoms for a week with a nonproductive cough. Today, she had difficulty breathing and went to the nurses station in the facility where they used the Ventolin inhaler that she has. However, this did not relieve her symptoms. She additionally states throat soreness. EMS notes patient was afebrile en route. She does not have any further complaints at this time. PMHx: hypothyroidism, HLD, HTN, DVT, COPD, Alzheimers. Nonsmoker, no EtOH , no substance use. Medications reviewed. Allergies noted. History is limited as patient is unable to recall events secondary to dementia. - History of Current Complaint Time Seen by Provider: 06/19/19 08:59 Hx Obtained From: Family/Sports Equipment Racker - [facility], EMS Hx From Patient Unobtainable Due To: Dementia - Level 5 Caveat Onset/Duration: Lasting Hours, Still Present Current Severity: Mild Associated Signs & Symptoms: Cough (Nonproductive) - Allergy/Home Medications Allergies/Adverse Reactions: Allergies Allergy/AdvReac Type Severity Reaction Status Date / Time Cephalosporins Allergy Unknown Verified 06/19/19 09:16 Reaction Details iodine Allergy Unknown Verified 06/19/19 09:16 Reaction Details shellfish derived Allergy Unknown Verified 06/19/19 09:16 Reaction Details Home Medications: Home Medications Albuterol HFA INHALER* [Ventolin HFA Inhaler*] 1 puff INH QID PRN 06/19/19 [ History Confirmed 06/19/19] Methyl Salicylate/Menthol [Bengay Greaseless Cream] 1 applic TOPICAL Q4H PRN [History Confirmed 06/19/19] guaiFENesin 100 mg/5 ml LIQ [Robitussin 100 mg/5ml LIQ] 10 ml PO Q6H PRN [History Confirmed 06/19/19] PMH/Surg Hx/FS Hx/Imm Hx Endocrine/Hematology History: Reports: Hx Thyroid Disease - hypo Denies: Hx Diabetes Cardiovascular History: Reports: Hx Hypercholesterolemia, Hx Hypertension Denies: Hx Pacemaker/ICD Respiratory History: Reports: Hx Chronic Obstructive Pulmonary Disease (COPD) History: Denies: Hx Dialysis Sensory History: Denies: Hx Contacts or Glasses, Hx Legally Blind, Hx Deafness, Hx Hearing Aid Opthamlomology History: Denies: Hx Contacts or Glasses, Hx Legally Blind Neurological History: Reports: Hx Dementia Psychiatric History: Reports: Hx Depression - Surgical History Surgical History: Unable to Obtain/Confirm - patient has dementia and is unable to provide full history Infectious Disease History: Unable to Obtain/Confirm - Family History Known Family History: Positive: Unknown - patient unable to provide full history secondary to dementia - Social History Alcohol Use: None Hx Substance Use: No Substance Use Type: Reports: None Hx Tobacco Use: No Smoking Status (MU): Never Smoked Tobacco Review of Systems Negative: Fever Positive: Sore Throat Positive: Shortness Of Breath, Cough - nonproductive All Other Systems Reviewed And Are Negative: No - Comments Additional Review of Systems Comments: Level 5 Caveat as patient is unable to provide full history secondary to dementia Physical Exam - Summary Physical Exam Summary: VITAL SIGNS: Reviewed. GENERAL: Patient is a well-developed and nourished female who is lying comfortable in the stretcher. Patient is not in any acute respiratory distress. HEAD AND FACE: No signs of trauma. No ecchymosis, hematomas or skull depressions. No sinus tenderness. EYES: PERRLA, EOMI x 2, No injected conjunctiva, no nystagmus. EARS: Hearing grossly intact. Ear canals and tympanic membranes are within normal limits. MOUTH: Oropharynx within normal limits. NECK: Supple, trachea is midline, no adenopathy, no JVD, no carotid bruit, no c- spine tenderness, neck with full ROM. CHEST: Symmetric, no tenderness at palpation. LUNGS: Some rhonchi. Slight wheezing. No crackles. CVS: Regular rate and rhythm, S1 and S2 present, no murmurs or gallops appreciated. ABDOMEN: Soft, non-tender. No signs of distention. No rebound, no guarding, and no masses palpated. Bowel sounds are normal. EXTREMITIES: 1+ edema. FROM in all major joints, no cyanosis or clubbing. NEURO: Alert and oriented x 3. No acute neurological deficits. Speech is normal and follows commands. SKIN: Dry and warm. Triage Information Reviewed: Yes Vital Signs Reviewed: Yes Completion Of Physical Exam Limited Due To: Dementia Procedures - Sedation Patient Received Moderate/Deep Sedation with Procedure: No Diagnostics - Laboratory Result Diagrams: 06/19/19 09:27 06/19/19 09:27 Lab Statement: Any lab studies that have been ordered have been reviewed, and results considered in the medical decision making process. - Radiology Chest X-Ray Radiology Interpretation Completed By: Radiologist Summary of Radiographic Findings: Impression: 1. Mild interstitial pulmonary edema suspected. 2. Mild linear bibasilar airspace opacification could be telephone services sales representative of atelectasis (see lateral view). Infiltrate could have have a similar appearance. ED physician has reviewed this report. - EKG 912 Cardiac Rate: NL - 83 BPM EKG Rhythm: Sinus Rhythm EKG Comparison: No Significant Change - Similar to previous EKG taken on . Summary of EKG Findings: EKG at 912 reveals normal sinus rhythm at [address] elevations. ED physician has reviewed and interpreted this EKG. Course/Dx - Course Assessment/Plan: Patient is an 83-year-old female who presents to the emergency department with a chief complaint of having shortness of breath. PMH: COPD, HTN , Dementia. Blood test results without any significant abnormality except for glucose of 108, alkaline phosphatase of 111, and troponin of 0.03 Patient is wheezing; therefore, the patient was given DuoNebs. She was also given an aspirin since the troponin is elevated. Chest x-ray impression: Mild interstitial pulmonary edema suspected. Maintaining and bibasilar is opacification could represent atelectasis. Infection could have similar appearance. At this time, I discussed my physical exam and findings with Dr. Jones from the hospitalist services who accepted the patient for admission. - Diagnoses Differential Diagnosis/HQI/PQRI: Positive: Asthma, Bronchitis, CHF, COPD Exacerbation, Pneumonia, Pulmonary Edema, Unstable Angina Provider Diagnoses: COPD (chronic obstructive pulmonary disease), CHF (congestive heart failure) - Physician Notifications Discussed Care of Patient With: Bina Jones - hospitalist Time Discussed With Above Provider: 10:50 Instructed by Provider To: Admit As Observation - I discussed the patient's case with Dr. Jones, and she accepts the patient for admission. Discharge ED - Sign-Out/Discharge Documenting (check all that apply): Patient Departure - Patient accepted for admisison by Dr. Jones. - Discharge Plan Condition: Stable Disposition: ADMITTED TO [facility] - Billing Disposition and Condition Condition: STABLE Disposition: Admitted to [facility] - Attestation Statements Document Initiated by Marge: Yes Documenting Scribe: Mandy Leigh Provider For Whom Marge is Documenting (Include Credential): Dr. Petey Burton MD Scribe Attestation: Mandy Craft, scribed for Dr. Petey Burton MD on 06/19/19 at 1814. Scribe Documentation Reviewed: Yes Provider Attestation: The documentation as recorded by the Mandy stein accurately reflects the service I personally performed and the decisions made by me, Dr. Petey Burton MD Status of Scribe Document: Viewed
[2019-06-19 09:41] LABS: ABS Basophils 0.1 10^3/ul (0-0.2); ABS Eosinophils 0.1 10^3/ul (0-0.6); ABS Monocytes 0.3 10^3/ul (0-0.8); Eosinophil % 1.5 %; Hematocrit 36 % (35-47); Hemoglobin 12.5 g/dL (12.0-16.0); Lymphocyte % 18.5 %; Mean Corpuscular HGB Conc 34 g/dL (31-36); Mean Corpuscular Hemoglobin 32 pg (27-31); Mean Corpuscular Volume 94 fL (80-97); Platelet Count 236 10^3/uL (150-450); Red Blood Count 3.87 10^6 /uL (3.70-4.87); Red Cell Distribution Width 14 % (10-15); White Blood Count 5.5 10^3/uL (3.5-10.8)
[2019-06-19 09:58] LABS: ALT 13 U/L (7-52); AST 17 U/L (13-39); Albumin 4.4 g/dL (3.2-5.2); Albumin/Globulin Ratio 1.6 (1-3); Alkaline Phosphatase 111 U/L (34-104); Anion Gap 10 mmol/L (2-11); BUN/Creatinine Ratio 20.4 (8-20); Blood Urea Nitrogen 20 mg/dL (6-24); C Reactive Protein 1.89 mg/L (<8.01); CO2 Carbon Dioxide 24 mmol/L (22-32); Calcium 9.4 mg/dL (8.6-10.3); Chloride 104 mmol/L (101-111); EGFR African American 65.7 (>60); EGFR Non-African American 54.3 (>60); Globulin 2.8 g/dL (2-4); Glucose 108 mg/dL (70-100); Sodium 138 mmol/L (135-145); Total Protein 7.2 g/dL (6.4-8.9)
[2019-06-19 10:17] LABS: Troponin I 0.03 ng/mL (<0.03)
[2019-06-19] MEDS ORDERED: methylPREDNISolone 125 MG* 2 ML VIAL IV ONE (10:31)
[2019-06-19] MEDS ORDERED: Albuterol/Ipratropium NEB.SOL* Albuterol 2.5 MG/Ipratropium 0.5 MG 3 ML INH ONE (10:31)
[2019-06-19] MEDS ORDERED: Aspirin 81 mg CHEW TAB* 81 MG TAB.CHEW PO ONE (10:33)
[2019-06-19] MEDS ORDERED: Acetaminophen TAB* 325 MG PO PRN (11:37)
[2019-06-19] MEDS ORDERED: Albuterol HFA INHALER* 8 gm MDI INH PRN (11:46)
[2019-06-19] MEDS ORDERED: Furosemide IV* 10 MG/ML VIAL (40 MG) IV ONE (11:47)
[2019-06-19] MEDS ORDERED: Saline NASAL SPRAY 0.65%* BTL BOTH NARES PRN (11:48)
[2019-06-19] MEDS ORDERED: Enoxaparin(*) 40 MG/0.4 ML SYR SUBCUT SCH (12:00)
--- NOTE | 2019-06-19 14:16 | HP ---
CC: Dr. Felipa Shankar * HISTORY AND PHYSICAL: DATE OF ADMISSION: 06/19/19 PRIMARY CARE PROVIDER: Felipa Shankar MD; [facility]. ATTENDING PHYSICIAN: Dr. Bina Jones * (dictated by MODESTO Zavala) CHIEF COMPLAINT: Coughing "uncontrollably." HISTORY OF PRESENT ILLNESS: Ms. Yu is an 83-year-old female with a past medical history of probable COPD, diastolic heart failure, dementia, who presented to the ER today accompanied by her stepson. She is an unreliable historian and answers questions inappropriate and therefore her stepsonOmari relays most of the information. She presents with a nonproductive cough since around 0900 this morning. She denies associated fevers, chills, sweats, although again she is unreliable. Her stepson states that he has not heard wheezing and there has been no reported elevation in temperature. He states that this began approximately 1 hour after breakfast the patient ate breakfast. The patient states she feels something is "stuck in here" and points to the midsternal area, but her stepson states that she has been saying this for years. The patient denies shortness of breath. She has just finished nebulizer treatment. She denies congestion, rhinorrhea. Her stepson states that the lower extremities are "always swollen" but he feels they may be somewhat more swollen than normal. In the ER, the patient received a full workup including laboratory data. CBC was unremarkable. CMP shows mildly elevated creatinine which is around the patient's baseline. Troponin elevated to 0.03. CRP is within normal limits. BNP is within normal limits. Chest x-ray show mild interstitial pulmonary edema , mild bibasilar opacification, atelectasis versus infiltrate. Hospitalist team was asked to evaluate the patient for admission. PAST MEDICAL HISTORY: 1. Heart failure, preserved ejection fraction. 2. Hypertension. 3. Hyperlipidemia. 4. Likely COPD. 5. GERD. 6. Dementia. 7. Depression. PAST SURGICAL HISTORY: None reported but chart review reveals loop recorder placed in 2017. HOME MEDICATIONS: 1. Acebutolol 200 mg p.o. b.i.d. 2. Acetaminophen 650 mg p.o. q.4 hours p.r.n. 3. Albuterol HFA inhaler 1 puff inhalation 4 times a day p.r.n. 4. Amlodipine 5 mg p.o. daily. 5. Atorvastatin 40 mg p.o. at bedtime. 6. Cholecalciferol 1000 units p.o. daily. 7. Docusate 100 mg p.o. daily. 8. Guaifenesin liquid 10 mL p.o. q.6 hours p.r.n. 9. Memantine XR 28 mg p.o. at bedtime. 10. Bengay cream 1 application topically q.4 hours p.r.n. 11. Aquaphor 1 application topically b.i.d. p.r.n. 12. Ranitidine 150 mg p.o. at bedtime. 13. Sertraline 25 mg p.o. at bedtime. 14. Tiotropium 1 cap inhalation daily. 15. Valsartan 320 mg p.o. daily. DRUG ALLERGIES: CEPHALOSPORIN, IODINE, and SHELLFISH. FAMILY HISTORY: Mayur states that Ms. Yu's mother was relatively healthy but had a history of dementia. Father was healthy. No family history of heart disease, diabetes mellitus, cancer, CVA. SOCIAL HISTORY: The patient quit using tobacco in approximately 1999. Prior to that she smoked for 40 years, 1 pack per day. She does not drink alcohol. She is a retired RN. She currently lives at [facility]. She is and has 1 stepson. Her surrogate decision maker is her power of real estate attorney, Abdelrahman Harrisalyssa. REVIEW OF SYSTEMS: Unable to obtain a proper review of systems due to history of dementia. PHYSICAL EXAMINATION GENERAL: Ms. Yu is a well-developed, well-nourished, overweight, older white woman who is sitting up in bed. She appears to be in no acute distress. She is pleasant and cooperative although answers are inappropriate and did not correlate with questions asked. She is breathing comfortably on room air. VITAL SIGNS: Temperature 98.9 temporal, heart rate 90, respiratory rate 15, oxygen saturation 96% on room air, blood pressure 142/70. HEENT: PERRL, EOMI. Nonicteric sclerae. Hearing is grossly intact. Nasal mucosa is erythematous. There is mild tenderness to palpation bilaterally at the maxillary sinus area, nontender frontal area. Oral mucous membranes are moist. There are no lesions. The pharynx is clear without erythema, exudates, or postnasal drainage. Tongue is at midline. PULMONARY: Symmetrical chest expansion without use of accessory muscles. There is mild rhonchorous sounds at the right base. No wheeze or rales. CARDIOVASCULAR: Regular rate and rhythm with S1, S2 present, without murmurs, rubs, clicks, or gallops. There is no JVD. There is 1 to 2+ pitting pretibial edema in the lower extremities. ABDOMEN: Obese, bowel sounds in all quadrants, soft and nontender to palpation. MUSCULOSKELETAL: Full range of motion without pain or deformity. NEURO: Cranial nerves are II through XII appear to be grossly intact, although the patient has some difficulty with following instructions. Muscle strength 5/ 5 bilaterally in upper and lower extremities. Equal career professional strength. DIAGNOSTIC STUDIES/LAB DATA: CBC unremarkable. Creatinine 0.98. Troponin 0.03. CRP 1.89. BNP 70. Chest x-ray 2 views, impression: Mild interstitial pulmonary edema suspected mild linear bibasilar air space opacification could be publications sales representative of atelectasis (see lateral view) infiltrate could have a similar appearance. ASSESSMENT AND PLAN: Ms. Yu is an 83-year-old female with a past medical history of diastolic heart failure, hypertension, hyperlipidemia, probable chronic obstructive pulmonary disease and dementia, who presented to the ER today with complaints of paroxysms of coughing, increased ankle swelling. The patient will be admitted for: 1. Cough with initial shortness of breath. The patient presents with coughing since this morning. She has no fever or leukocytosis. Therefore, pneumonia is low on the differential, although this did occur approximately 1 hour after eating breakfast, so this could represent aspiration pneumonia. She has no wheezing pre or post nebulizer treatment; therefore, I do not suspect chronic obstructive pulmonary disease exacerbation. I suspect that her shortness of breath and cough may be related to heart failure exacerbation. She does have a mild increase in lower extremity edema as well as some perceived shortness of breath indicated by the fact that she is requiring supplemental oxygen to maintain O2 sats in the ER. She will be given 40 mg IV Lasix now and we will monitor need for repeat in the morning. She may need to be placed on this medication in the outpatient setting. We will monitor daily weights, intake, outtake. 2. Elevated troponin. The patient has a troponin of 0.03. She denies chest pain, although she is an unreliable historian. This elevated troponin appears to be within her baseline. Her EKG shows no ST changes. There appears to be a left bundle branch blocks which is not new. We will continue to trend troponins. 3. Heart failure. The patient's most recent echo was 10/11/18. EF of 55% to 60% with abnormal LV diastolic function. She is currently on an ARB. She does not appear to be on diuretics outpatient. She would likely benefit from Lasix p.o. in the outpatient setting. 4. Chronic obstructive pulmonary disease. The patient does not appear to be in exacerbation. Continue albuterol and tiotropium. 5. Hypertension. Continue amlodipine, valsartan. 5. Hyperlipidemia. Continue atorvastatin. 6. Gastroesophageal reflux disease. Continue H2 kerry. 7. Dementia. Continue memantine. 8. Depression. Continue sertraline. 9. DVT prophylaxis. According to the DVT Risk Assessment, the patient scores 4 placing her at high risk. She will be started on Lovenox. 10. Code status. DNR. TIME SPENT: Approximately 60 minutes was spent on this admission, greater than half that time was spent [id number] with the patient and her steps on obtaining history, performing physical, and reviewing the plan of care. The case has been reviewed was my attending, Dr. Jones, who is in agreement with the plan of care. MODESTO RIOJAS [id number]/[facility] #: [id number] [facility]
[2019-06-19 15:52] LABS: Troponin I 0.03 ng/mL (<0.03)
[2019-06-19 19:07] LABS: Troponin I 0.04 ng/mL (<0.03)
[2019-06-19] MEDS: ACEBUTOLOL 200 MG PO SCH (19:58)
[2019-06-19] MEDS ORDERED: Famotidine TAB* 20 MG PO SCH (21:00)
[2019-06-19] MEDS ORDERED: Sertraline* 25 MG TAB PO SCH (21:00)
[2019-06-19] MEDS ORDERED: Memantine XR CAP* 28 MG CAP.XR PO SCH (21:00)
[2019-06-19] MEDS ORDERED: Atorvastatin* 40 MG TAB PO SCH (21:00)
[2019-06-20 06:18] LABS: ABS Lymphocytes 0.8 10^3/ul (1.0-4.8); ABS Monocytes 0.4 10^3/ul (0-0.8); ABS Neutrophils 5.5 10^3/ul (1.5-7.7); Hematocrit 35 % (35-47); Hemoglobin 11.8 g/dL (12.0-16.0); Lymphocyte % 12.3 %; Mean Corpuscular HGB Conc 34 g/dL (31-36); Mean Corpuscular Hemoglobin 32 pg (27-31); Mean Corpuscular Volume 95 fL (80-97); Mean Platelet Volume 9.4 fL (7.4-10.4); Platelet Count 272 10^3/uL (150-450); Red Blood Count 3.68 10^6 /uL (3.70-4.87); Red Cell Distribution Width 14 % (10-15); White Blood Count 6.8 10^3/uL (3.5-10.8)
[2019-06-20 06:37] LABS: BUN/Creatinine Ratio 22.9 (8-20); Calcium 9.5 mg/dL (8.6-10.3); EGFR African American 67.3 (>60); EGFR Non-African American 55.6 (>60); Potassium 3.9 mmol/L (3.5-5.0)
[2019-06-20] MEDS ORDERED: SPIRIVA Respimat* (tiotropium) 2.5 mcg/inh Inhaler INH SCH (09:00)
[2019-06-20] MEDS ORDERED: Cholecalciferol TAB* 1000 UNITS PO SCH (09:00)
[2019-06-20] MEDS ORDERED: amLODIPine TAB* 5 MG PO SCH (09:00)
[2019-06-20] MEDS ORDERED: Valsartan TAB* 160 MG PO SCH (09:00)
[2019-06-20] MEDS ORDERED: Docusate CAP* 100 MG PO SCH (09:00)
[2019-06-20] MEDS: ACEBUTOLOL 200 MG PO SCH (09:16)
[2019-06-20 11:52] VITALS: BP 121/60
--- NOTE | 2019-06-21 16:26 | DS ---
CC: Dr. Shankar * DISCHARGE SUMMARY: DATE OF ADMISSION: 06/19/19 DATE OF DISCHARGE: 06/20/19 PRIMARY CARE PROVIDER: Dr. Shankar. DISCHARGE DIAGNOSES: Dyspnea and dry cough, likely secondary to mild diastolic congestive heart failure exacerbation. SECONDARY DIAGNOSES: 1. Heart failure with preserved ejection fraction. 2. Hypertension. 3. Hyperlipidemia. 4. Chronic obstructive pulmonary disease. 5. Gastroesophageal reflux disease. 6. Dementia. 7. Depression. MEDICATION LIST: 1. Acebutolol 200 mg p.o. b.i.d. 2. Acetaminophen 650 mg p.o. q.4 hours p.r.n. pain or fever. 3. Acetaminophen 650 mg p.o. t.i.d. 4. Albuterol HFA 1 puff inhaled 4 times a day p.r.n. shortness of breath. 5. Amlodipine 5 mg p.o. daily. 6. Atorvastatin 40 mg p.o. at bedtime. 7. Cholecalciferol 1000 units p.o. daily. 8. Colace 100 mg p.o. daily. 9. Guaifenesin 10 mL p.o. q.6 hours p.r.n. cough. 10. Memantine XR 28 mg p.o. at bedtime. 11. Bengay cream topical q.4 hours p.r.n. 12. Aquaphor topical b.i.d. as needed for dry skin. 13. Ranitidine 150 mg p.o. at bedtime. 14. Sertraline 25 mg p.o. at bedtime. 15. Spiriva 1 capsule inhaled daily. 16. Valsartan 320 mg p.o. daily. New medications: 1. Furosemide 20 mg p.o. Mondays, Wednesdays, Fridays. 2. Potassium chloride 20 mEq p.o. Mondays, Wednesdays, Fridays. HOSPITAL COURSE: Ms. Yu is an 83-year-old female with a past medical history as stated above, who presented to the emergency room with complaints of dyspnea and frequent cough. For more details about her presentation, I refer you to her history and physical. Her workup in the emergency room was suggestive of mild diastolic congestive heart failure exacerbation with a chest x-ray showing some interstitial edema. The patient was diuresed with furosemide with excellent response. Her dyspnea is resolved as well as her cough. Her son had noted worsening of her lower extremity edema and that also seems to be improved at this time. The patient is medically stable to be discharged back to [facility], but she would benefit from mild diuresis and a heart-healthy diet on discharge. She will receive furosemide and potassium supplementation 3 times a week and she will need to follow up with Dr. Shankar to monitor her renal function, her electrolytes and make sure that this low dose 3 times a week will be enough to maintain her fluid balance. PHYSICAL EXAMINATION: Vital Signs: Temperature 97.6, heart rate is 71, respiratory rate is 15, oxygen saturation is 95% on room air, blood pressure is 121/60. General: The patient is an elderly, obese lady, sitting up in bed, in no acute distress. CVS: Normal S1, S2. Regular rate and rhythm. Chest: Breath sounds present bilaterally, diminished with no added sounds. Neuro: She is alert and oriented x2 to self and place. Able to move all 4 extremities. DIET: Heart-healthy diet. ACTIVITIES: As tolerated. DISPOSITION: To [facility]. CONDITION AT THE TIME OF DISCHARGE: Fair. STATUS WHILE IN THE HOSPITAL: Observation. Please keep in mind that this is a summarized version of this patient's hospital stay. If you need more information, please feel free to call me at [phone] or please obtain full medical records. TIME SPENT: Approximately 45 minutes was spent to complete this discharge. [id number]/[facility] #: [id number] [facility]
== END 2019-06-20 14:27 | disposition home or self-care (01) ==
LOC: ED 08:58 → MEDTELE 11:37
PROVIDERS: ADMIT Internal Medicine; ATTEND Internal Medicine
DX: R06.00 Dyspnea, unspecified (principal); I11.0 Hypertensive heart disease with heart failure; I50.30 Unspecified diastolic (congestive) heart failure; E78.5 Hyperlipidemia, unspecified; J44.9 Chronic obstructive pulmonary disease, unspecified; K21.9 Gastro-esophageal reflux disease without esophagitis; F03.90 Unspecified dementia, unspecified severity, without behavioral disturbance, psychotic disturbance, mood disturbance, and anxiety; F32.9 Major depressive disorder, single episode, unspecified; Z79.899 Other long term (current) drug therapy; Z66 Do not resuscitate
CPT/HCPCS: 36415; 71046; 80048; 80053; 83605; 83880; 84484; 85025; 86140; 87040; 93005; 94640; 96372; 96374; 96375; 99284; A9270-GY; G0378; J1650; J1940; J2930; J3535

== ENCOUNTER 2023-08-25 17:45 | Inpatient (IN) ==
[2023-08-25 19:06] LABS: ABS Lymphocytes 0.9 10^3/uL (1.0-4.8); ABS Monocytes 0.7 10^3/uL (0.0-0.9); ABS Nucleated RBC 0.01 10^3/ul; Hemoglobin 12.9 g/dL (11.5-14.3); Lymphocyte % 6.4 %; Mean Corpuscular Hemoglobin 31.8 pg (27-33); Mean Corpuscular Hgb Conc 33.9 g/dL (31-36); Mean Corpuscular Volume 93.6 fL (80-97); Nucleated Red Blood Cells % 0.1 %/100WBC (0.0-0.8); Platelet Count 198 10^3/uL (150-450); Red Blood Count 4.06 10^6/uL (3.63-4.92); White Blood Count 13.6 10^3/uL (3.8-11.8)
[2023-08-25 19:10] LABS: Urine Appearance Clear; Urine Bilirubin Negative (Negative); Urine Blood Negative (Negative); Urine Color Yellow; Urine Glucose Negative (Negative); Urine Ketones Negative (Negative); Urine Nitrite Negative (Negative); Urine Protein Negative (Negative); Urine Specific Gravity 1.014 (1.002-1.030); Urine Urobilinogen Negative (Negative)
[2023-08-25 19:15] LABS: Activated Partial Thrombo Time 27.6 seconds (26.0-38.0); INR 1.05 (0.83-1.13)
[2023-08-25 19:27] LABS: Albumin 4.2 g/dL (3.2-5.2); Albumin/Globulin Ratio 1.4 (1-3); C Reactive Protein 86.51 mg/L (<8.01); Calcium 9.4 mg/dL (8.6-10.3); Creatinine, Serum 1.14 mg/dL (0.51-0.95); Potassium 3.6 mmol/L (3.5-5.0); Total Bilirubin 0.8 mg/dL (0.2-1.0); Total Protein 7.2 g/dL (6.4-8.9); eGFR CKD-EPI 46.9 (>60)
[2023-08-25 20:50] LABS: High Sensitivity Troponin 1 Hr 45 pg/mL (<15)
[2023-08-26] MEDS ORDERED: Iodixanol (CONTRAST) 320 MG/ML 100 ML SDV IV ONE (00:05)
[2023-08-26] MEDS ORDERED: methylPREDNISolone SOD SUCC 125 mg 2 ML VIAL IV ONE (00:57)
[2023-08-26] MEDS ORDERED: Lactated Ringers 1000 ml BAG 1,000 ML IV ONE (01:51)
[2023-08-26] MEDS ORDERED: Piperacillin/Tazobac 3.375 BAG 3.375 GM/100 ML BAG IV ONE (02:24)
[2023-08-26] MEDS ORDERED: Albuterol HFA INHALER 8 gm MDI INH PRN (04:47)
[2023-08-26] MEDS ORDERED: Lactulose 30 ml UDC PO ONE (05:09)
[2023-08-26] MEDS ORDERED: Polyethylene Glycol 3350 17 GM PACKET PO PRN (06:49)
[2023-08-26 07:20] LABS: ABS Lymphocytes 0.8 10^3/uL (1.0-4.8); ABS Monocytes 0.1 10^3/uL (0.0-0.9); ABS Neutrophils 11.7 10^3/uL (1.5-7.6); Eosinophil % 0.1 %; Hematocrit 37.2 % (35-45); Hemoglobin 12.6 g/dL (11.5-14.3); Lymphocyte % 6.3 %; Mean Corpuscular Hemoglobin 31.7 pg (27-33); Mean Corpuscular Hgb Conc 33.8 g/dL (31-36); Mean Corpuscular Volume 93.8 fL (80-97); Mean Platelet Volume 9.3 fL (7.5-11.2); Platelet Count 199 10^3/uL (150-450); Red Blood Count 3.97 10^6/uL (3.63-4.92); Red Cell Distribution Width 13.3 % (12-17); White Blood Count 12.7 10^3/uL (3.8-11.8)
[2023-08-26 07:40] LABS: ALT 10 U/L (7-52); Albumin 4.3 g/dL (3.2-5.2); Albumin/Globulin Ratio 1.3 (1-3); Alkaline Phosphatase 113 U/L (35-149); Anion Gap 10 mmol/L (2-16); Blood Urea Nitrogen 26 mg/dL (6-24); CO2 Carbon Dioxide 25 mmol/L (22-32); Calcium 9.2 mg/dL (8.6-10.3); Chloride 105 mmol/L (101-111); Globulin 3.2 g/dL (2-4); Glucose 151 mg/dL (70-100); Sodium 140 mmol/L (135-145); Total Bilirubin 0.8 mg/dL (0.2-1.0); Total Protein 7.5 g/dL (6.4-8.9); eGFR CKD-EPI 48.9 (>60)
[2023-08-26] MEDS: Enoxaparin 40 MG/0.4 ML SYR SUBCUT SCH (07:45)
[2023-08-26] MEDS: Senna TAB 8.6 mg TAB PO SCH (19:41)
[2023-08-27] MEDS: Enoxaparin 40 MG/0.4 ML SYR SUBCUT SCH (05:44)
[2023-08-27 07:43] LABS: Hematocrit 32.4 % (35-45); Hemoglobin 11.2 g/dL (11.5-14.3); Mean Corpuscular Hemoglobin 32.7 pg (27-33); Mean Corpuscular Hgb Conc 34.7 g/dL (31-36); Mean Corpuscular Volume 94.2 fL (80-97); Mean Platelet Volume 9.3 fL (7.5-11.2); Platelet Count 183 10^3/uL (150-450); Red Blood Count 3.44 10^6/uL (3.63-4.92); Red Cell Distribution Width 13.3 % (12-17); White Blood Count 8.8 10^3/uL (3.8-11.8)
[2023-08-27 07:59] LABS: Calcium 8.8 mg/dL (8.6-10.3); Creatinine, Serum 1.11 mg/dL (0.51-0.95); Magnesium 2.1 mg/dL (1.9-2.7); Potassium 3.5 mmol/L (3.5-5.0); eGFR CKD-EPI 48.1 (>60)
[2023-08-27] MEDS: Senna TAB 8.6 mg TAB PO SCH (21:28)
[2023-08-28] MEDS: Enoxaparin 40 MG/0.4 ML SYR SUBCUT SCH (05:16)
[2023-08-28] MEDS: Senna TAB 8.6 mg TAB PO SCH (21:47)
[2023-08-29] MEDS: Enoxaparin 40 MG/0.4 ML SYR SUBCUT SCH (05:11)
[2023-08-29 06:51] LABS: Hematocrit 33.6 % (35-45); Hemoglobin 11.7 g/dL (11.5-14.3); Mean Corpuscular Hemoglobin 32.8 pg (27-33); Mean Corpuscular Hgb Conc 34.8 g/dL (31-36); Mean Corpuscular Volume 94.4 fL (80-97); Platelet Count 198 10^3/uL (150-450); Red Blood Count 3.56 10^6/uL (3.63-4.92); Red Cell Distribution Width 13.1 % (12-17); White Blood Count 4.4 10^3/uL (3.8-11.8)
[2023-08-29 07:21] LABS: Calcium 8.8 mg/dL (8.6-10.3); Creatinine, Serum 1.04 mg/dL (0.51-0.95); Magnesium 2.2 mg/dL (1.9-2.7); Potassium 3.8 mmol/L (3.5-5.0)
[2023-08-29 10:20] VITALS: BP 134/57
== END 2023-08-29 14:45 | DRG 392 ==
LOC: ED 17:45 → EDHOLD 17:45 → SUATTDRO 08-26 03:15 → MEDTELE 08-26 11:36
PROVIDERS: ADMIT Internal Medicine; ATTEND Internal Medicine

== ENCOUNTER 2023-12-11 12:01 | Observation (INO) ==
[2023-12-11] MEDS: Albuterol 2.5mg/3 ml (0.083%) NEB.SOLN INH ONE (12:29)
[2023-12-11] MEDS: methylPREDNISolone SOD SUCC 125 mg 2 ML VIAL IV ONE (13:19)
[2023-12-11 13:25] LABS: ABS Eosinophils 0.1 10^3/uL (0.0-0.5); ABS Lymphocytes 1.4 10^3/uL (1.0-4.8); ABS Monocytes 0.3 10^3/uL (0.0-0.9); ABS Nucleated RBC 0.01 10^3/ul; Eosinophil % 1.9 %; Hematocrit 34.7 % (35-45); Hemoglobin 11.7 g/dL (11.5-14.3); Lymphocyte % 28.4 %; Mean Corpuscular Hemoglobin 31.2 pg (27-33); Mean Corpuscular Hgb Conc 33.8 g/dL (31-36); Mean Corpuscular Volume 92.5 fL (80-97); Mean Platelet Volume 8.6 fL (7.5-11.2); Nucleated Red Blood Cells % 0.1 %/100WBC (0.0-0.8); Platelet Count 208 10^3/uL (150-450); Red Blood Count 3.75 10^6/uL (3.63-4.92); Red Cell Distribution Width 13.4 % (12-17); White Blood Count 4.9 10^3/uL (3.8-11.8)
[2023-12-11 14:05] LABS: Albumin 4.3 g/dL (3.2-5.2); Albumin/Globulin Ratio 1.7 (1-3); Calcium 9.2 mg/dL (8.6-10.3); Creatinine, Serum 0.85 mg/dL (0.51-0.95); Globulin 2.5 g/dL (2-4); Potassium 3.6 mmol/L (3.5-5.0); Total Bilirubin 0.7 mg/dL (0.2-1.0); Total Protein 6.8 g/dL (6.4-8.9); eGFR CKD-EPI 66.3 (>60)
[2023-12-11] MEDS ORDERED: Polyethylene Glycol 3350 17 GM PACKET PO PRN (15:17)
[2023-12-11] MEDS: Bumetanide IV 0.25 MG/ML 4 ml VIAL (1 mg) IV SLOW PU ONE (18:32)
[2023-12-11] MEDS: Enoxaparin 40 MG/0.4 ML SYR SUBCUT SCH (20:28)
[2023-12-11] MEDS: Nystatin TOP POWDER 15 GM BTL TOPICAL SCH (20:33)
[2023-12-11] MEDS: Senna TAB 8.6 mg TAB PO SCH (22:14)
[2023-12-12 03:56] LABS: Urine Appearance Clear; Urine Bilirubin Negative (Negative); Urine Blood Negative (Negative); Urine Color Yellow; Urine Glucose Negative (Negative); Urine Ketones Trace (Negative); Urine Nitrite Negative (Negative); Urine Protein Negative (Negative); Urine Specific Gravity 1.015 (1.002-1.030); Urine Urobilinogen Negative (Negative)
[2023-12-12 10:04] LABS: Calcium 8.6 mg/dL (8.6-10.3); Creatinine, Serum 0.77 mg/dL (0.51-0.95); Potassium 3.3 mmol/L (3.5-5.0); eGFR CKD-EPI 74.6 (>60)
[2023-12-12 11:15] VITALS: BP 159/73
[2023-12-12] MEDS: Cholecalciferol (VIT D3) 1,000 unit TAB PO SCH (11:20)
[2023-12-12] MEDS: Potassium Chlor 20 meq TAB.ER PO SCH (11:34)
[2023-12-12] MEDS: Potassium EFFERVES 25 meq TAB PO ONE (12:02)
== END 2023-12-12 12:15 ==
LOC: ED 12:01 → EDHOLD 12:01 → MED 15:44
PROVIDERS: ADMIT Internal Medicine; ATTEND Internal Medicine